=== PATIENT | female | born 1950 | race Caucasian/White ===

== ENCOUNTER → 2022-04-03 14:54 | Outpatient (CLI) | payer MEDICARE, SELFPAY ==
--- NOTE | ~2022-04-03 | MM_ITS ---
EXAMINATION: MM scrn audra implant BI w devin HISTORY: Screening mammogram TECHNIQUE: Craniocaudal and mediolateral oblique 3-D tomosynthesis images with implant displacement a nd synthetic 2-D images were generated. Craniocaudal and mediolateral oblique views of the breasts wi thout implant displacement were obtained using full field digital mammography. CAD analysis was submi tted and interpreted. COMPARISON: Comparison to multiple prior studies sequentially, with oldest reviewed study dated 03/2017. BREAST PARENCHYMAL COMPOSITION: There are scattered areas of fibroglandular density. FINDINGS: There is no evidence of suspicious mass, calcification, or architectural distortion to sugg est malignancy in either breast. There has been no suspicious interval change. IMPRESSION: 1. No mammographic evidence of malignancy. 2. Recommend routine screening mammography in one year. BI-RADS Category 1: Negative Reviewed, dictated and finalized at location A. [employer]
== END ==
PROVIDERS: PCP Family Medicine; Visit Provider Physician Assistant
DX: Z12.31 Encounter for screening mammogram for malignant neoplasm of breast (principal); Z98.82 Breast implant status
CPT/HCPCS: 77063; 77067

== ENCOUNTER 2022-10-02 00:54 | Day surgery (SDC) | payer MEDICARE, OTHER, SELFPAY ==
[2022-09-23 13:45] VITALS: BMI 28.0
--- NOTE | 2022-10-01 14:06 | PM.HPGS ---
History of Present Illness History of Present Illness Consent: Risks, benefits, and alternatives have been discussed and questions answered. Patient agrees to proceed with procedure. Chief complaint: positive cologuard Narrative: Lucie Emerson is a 72 year old female referred for colon cancer screening. She had a recent Cologuard test which was positive Review of Systems Review of Systems: All systems reviewed & are unremarkable except as noted in HPI and below PMFSH Past Medical History Medical History CAD (coronary artery disease) Hypertension with heart disease Hypothyroidism Pure hyperglyceridemia Surgical History Surgical History History of hysterectomy Family History Family History Sibling Hypertension Family history of diabetes mellitus in first degree relative Mother Family history of malignant neoplasm of brain Social History Social History Smoking status: Never smoker Second hand tobacco smoke exposure: No Alcohol intake: never Substance use: never Substance use type: does not use Living arrangements: alone Occupation/Education: retired Gender identity (if verbalized by the patient): Female Sexual Orientation (if Verbalized by the Patient): Straight or Heterosexual Spiritual care concerns: No Meds Home Medications and Allergies Home Medications Medication Instructions Recorded Confirmed Type amlodipine 2.5 mg tablet 2.5 mg PO BID 08/15/20 09/23/22 History cholecalciferol (vitamin D3) 1,250 1,250 mcg PO WEEKLY 08/15/20 09/23/22 History mcg (50,000 unit) capsule fenofibrate 160 mg tablet 160 mg PO DAILY 08/15/20 09/23/22 History isosorbide dinitrate 30 mg tablet 30 mg PO BID 08/15/20 09/23/22 History levothyroxine 50 mcg tablet 50 mcg PO DAILY 08/15/20 09/23/22 History liothyronine 5 mcg tablet 5 mcg PO DAILY 08/15/20 09/23/22 History metoprolol succinate 50 mg 50 mg PO DAILY 08/15/20 09/23/22 History tablet,extended release 24 hr meloxicam 7.5 mg tablet 7.5 mg PO BID #180 tabs 04/05/22 09/23/22 Rx aspirin 81 mg tablet,delayed 81 mg PO DAILY 09/23/22 09/23/22 History release inulin 2 gram chewable tablet 2 g PO DAILY 09/23/22 09/23/22 History (Fiber Gummies) Allergies Allergy/AdvReac Type Severity Reaction Status Date / Time penicillin G Allergy Mild Rash Verified 10/02/22 06:23 Penicillins Allergy Mild Rash Verified 10/02/22 06:23 codeine AdvReac Mild Nausea Verified 10/02/22 06:23 hydrocodone AdvReac Mild Nausea Verified 10/02/22 06:23 Exam Const: General: alert Orientation/consciousness: patient oriented x3 Resp: Auscultation: clear to auscultation bilaterally Cardio: Rhythm: regular rhythm GI: GI Palp: Yes Soft to palpation and No Tenderness to palpation present (GI) Neuro: General: patient oriented x3 Assessment and Plan Assessment and plan (1) Colon cancer screening: Code(s): Z12.11 - Encounter for screening for malignant neoplasm of colon Status: Acute Assessment and Plan: Colonoscopy with possible biopsy or polypectomy or cautery or injection of substances.
[2022-10-02 06:24] VITALS: BP 138/87; PULSE 75; RESP 18; TEMP 36.3; O2SAT 99
[2022-10-02] MEDS: LACTATED RINGERS 1,000 ML 150 ML IV CONT (06:36)
--- NOTE | 2022-10-02 07:23 | WPDANESEPPF ---
Anes - Initial Pre Proc Eval Procedure: Operation Date: 10/02/22 07:30 Proposed Procedures p Colonoscopy - Kulwant Burk MD Date/Time: 10/02/22 07:23 Surgeon: Kulwant Burk MD Pre Op Diagnosis: positive cologuard Patient Data Age: 72 Gender: F Height: 1.63 m Weight: 72.2 kg Last Vital Signs Temp 97.3 F L 10/02/22 06:24 Pulse 75 10/02/22 06:24 Resp 18 10/02/22 06:24 BP 138/87 10/02/22 06:24 Pulse Ox 99 10/02/22 06:24 O2 Del Method Room Air 10/02/22 06:24 Allergies Allergy/AdvReac Type Severity Reaction Status Date / Time penicillin G Allergy Mild Rash Verified 10/02/22 06:23 Penicillins Allergy Mild Rash Verified 10/02/22 06:23 codeine AdvReac Mild Nausea Verified 10/02/22 06:23 hydrocodone AdvReac Mild Nausea Verified 10/02/22 06:23 Home Medications Medication Instructions Recorded Confirmed Type amlodipine 2.5 mg tablet 2.5 mg PO BID 08/15/20 09/23/22 History cholecalciferol (vitamin D3) 1,250 1,250 mcg PO WEEKLY 08/15/20 09/23/22 History mcg (50,000 unit) capsule fenofibrate 160 mg tablet 160 mg PO DAILY 08/15/20 09/23/22 History isosorbide dinitrate 30 mg tablet 30 mg PO BID 08/15/20 09/23/22 History levothyroxine 50 mcg tablet 50 mcg PO DAILY 08/15/20 09/23/22 History liothyronine 5 mcg tablet 5 mcg PO DAILY 08/15/20 09/23/22 History metoprolol succinate 50 mg 50 mg PO DAILY 08/15/20 09/23/22 History tablet,extended release 24 hr meloxicam 7.5 mg tablet 7.5 mg PO BID #180 tabs 04/05/22 09/23/22 Rx aspirin 81 mg tablet,delayed 81 mg PO DAILY 09/23/22 09/23/22 History release inulin 2 gram chewable tablet 2 g PO DAILY 09/23/22 09/23/22 History (Fiber Gummies) Patient hx anesthesia problems: none Family hx anesthesia problems: none Results Review: All pre-operative results and documents have been reviewed as part of the pre-operative evaluation. [facility] Past Medical History Medical History CAD (coronary artery disease) Hypertension with heart disease Hypothyroidism Pure hyperglyceridemia Surgical History Surgical History History of hysterectomy Family History Family History Sibling Hypertension Family history of diabetes mellitus in first degree relative Mother Family history of malignant neoplasm of brain Social History Social History Smoking status: Never smoker Second hand tobacco smoke exposure: No Alcohol intake: never Substance use: never Substance use type: does not use Living arrangements: alone Occupation/Education: retired Gender identity (if verbalized by the patient): Female Sexual Orientation (if Verbalized by the Patient): Straight or Heterosexual Spiritual care concerns: No Anes - Eval Final PreProcedure Day of Procedure 10/02/22 07:23 Patient weight: normal Heart: regular rate and rhythm Lungs: clear to auscultation Airway: Mallampati scale class II Neurological: alert and oriented Last oral intake: >/= 8 hours ASA classification: III Emergent: no Anesthetic plan: proceed Anesthesia type and monitoring: general GIVS and standard monitoring Results Review: All pre-operative results and documents have been reviewed as part of the pre-operative evaluation. Informed Consent: The patient's anesthetic plan and its attendant risks and benefits were discussed with the patient/family/POA. Questions were solicited and answers provided to the satisfaction of the patient/family/POA.
[2022-10-02 07:54] VITALS: BP 124/68; PULSE 85; RESP 21; O2SAT 98
[2022-10-02 08:04] VITALS: BP 131/81; PULSE 74; RESP 20; O2SAT 100
[2022-10-02 08:14] VITALS: BP 127/73; PULSE 73; RESP 21; O2SAT 98
== END 2022-10-02 08:17 | disposition home or self-care (01) ==
PROVIDERS: PCP Family Medicine; Visit Provider Internal Medicine Gastroenterology
PROC: 0DJD8ZZ Inspection of Lower Intestinal Tract, Via Natural or Artificial Opening Endoscopic (ICD-10-PCS; CPT 45378; principal; 2022-10-02 07:30)
DX: Z12.11 Encounter for screening for malignant neoplasm of colon (principal); K57.30 Diverticulosis of large intestine without perforation or abscess without bleeding; R19.5 Other fecal abnormalities; I25.10 Atherosclerotic heart disease of native coronary artery without angina pectoris; I11.9 Hypertensive heart disease without heart failure; E03.9 Hypothyroidism, unspecified; E78.1 Pure hyperglyceridemia; Z79.82 Long term (current) use of aspirin
CPT/HCPCS: G0121; J2704; J7120

== ENCOUNTER 2023-03-01 07:25 | Outpatient (CLI) | payer MEDICARE, OTHER, SELFPAY ==
[2023-03-01 08:18] LABS: Anion Gap 5 mmol/L (8-16); Blood Urea Nitrogen 16 mg/dL (7-18); Calcium 9.3 mg/dL (8.5-10.1); Carbon Dioxide 31 mmol/L (21-32); Chloride 104 mmol/L (98-108); Cholesterol 172 mg/dL (0-200); Estimated Glomerular Filt Rate > 60; Glucose 113 mg/dL (70-99); HDL Direct 33 mg/dL (40-60); LDL Cholesterol Calculated 112 mg/dL (<130); Osmolality Calculated 292 mOsm/kg (285-295); Potassium 4.5 mmol/L (3.5-5.1); Sodium 140 mmol/L (136-145); Triglycerides 135 mg/dL (0-150)
[2023-03-01 08:21] LABS: Hemoglobin A1C 6.1 % (<5.7)
== END 2023-03-01 07:26 | disposition home or self-care (01) ==
PROVIDERS: PCP Emergency Medicine; Visit Provider Emergency Medicine
DX: R73.01 Impaired fasting glucose (principal); I25.10 Atherosclerotic heart disease of native coronary artery without angina pectoris
CPT/HCPCS: 36415; 80048; 80061; 83036

== ENCOUNTER 2023-07-12 07:11 | Outpatient (CLI) | payer MEDICARE, OTHER, SELFPAY ==
[2023-07-12 08:14] LABS: Alanine Aminotransferase 34 U/L (14-59); Albumin Level 3.8 g/dL (3.4-5.0); Alkaline Phosphatase 68 U/L (46-116); Anion Gap 8 mmol/L (4-12); Aspartate Amino Transferase 26 U/L (15-37); Bilirubin,Total 0.7 mg/dL (0.00-1.00); Blood Urea Nitrogen 14 mg/dL (7-18); Calcium 9.3 mg/dL (8.5-10.1); Carbon Dioxide 30 mmol/L (21-32); Chloride 105 mmol/L (98-108); Cholesterol 148 mg/dL (0-200); Creatine Kinase 98 U/L (26-192); Estimated Glomerular Filt Rate > 60; Glucose 115 mg/dL (70-99); HDL Direct 46 mg/dL (40-60); LDL Cholesterol Calculated 73 mg/dL (<130); Osmolality Calculated 297 mOsm/kg (285-295); Potassium 4.6 mmol/L (3.5-5.1); Sodium 143 mmol/L (136-145); Total Protein 6.7 g/dL (6.4-8.2); Triglycerides 146 mg/dL (0-150)
== END 2023-07-12 07:12 | disposition home or self-care (01) ==
LOC: CHSLAB 07:16
PROVIDERS: PCP Emergency Medicine; Visit Provider Hospitalist
DX: E78.2 Mixed hyperlipidemia (principal)
CPT/HCPCS: 36415; 80053; 80061; 82550

== ENCOUNTER 2023-10-31 08:12 | Outpatient (RCR) | payer MEDICARE, OTHER, SELFPAY ==
--- NOTE | 2023-10-31 08:43 | OTOPEVAL1 ---
Assessment and note entered by Anai Cook OT Evaluation Information Assessment Status Evaluation Diagnosis Carpal tunnel syndrome, right upper limb ICD-10 Condition Codes (OT) M25.531 Other ICD-10 Condition Codes ( Primary osteoarthritis, right hand OT) Onset 3 years Reported Pain Level Pain Score 3: Self Report Assessment OT Clinical Summary The patient is a 73 year old female who was referred to outpatient OT due to carpal tunnel syndrome. 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 The patient has difficulty picking up her coffee mug, opening jars, affects her work tasks, and affects sleep. The patient scored 31.8% on QuickDASH questionnaire at the time of evaluation demonstrating moderate to mild dysfunction of UE. She requires skilled OT to address these symptoms and improve function for quality of life. Plan of Care Interventions Therapeutic Exercise,Manual Therapy,Neuro Re- education,Therapeutic Activities,Hot Pack/Cold Pack,Electrical Stimulation,Sensory Integrative Techn,Self-Care/Home Management,Prosthetic Training,Ultrasound OT Services Indicated Yes Treatment Frequency and 2x/week for 10 visits. Duration These treatments will address the objective and functional deficits as defined above. The patient will be advanced safely and appropriately in order for the patient to progress towards his/her prior level of function. Additional exercises will be introduced and as well as a comprehensive home exercise program upon discharge, if needed, ?to ensure carryover of functional gains achieved in the clinic. This treatment plan has been reviewed and agreement upon by the patient.
--- NOTE | 2023-11-05 08:53 | OPREHPOC ---
Outpatient Therapy Plan of Care This is a Multidisciplinary Plan of Care that may contain components documented by all disciplines (PT, OT, and ST.) PT Problem 1 PT Problem #1 Knowledge Deficit PT Goal 1 Goal / Goal Update The patient will be independent in a home exercise program. Target Visit 4 PT Problem 2 PT Problem #2 Pain PT Goal 1 Goal / Goal Update The patient will report no greater than 2/10 lumbar and R LE pain with grocery shopping and housework. Target Visit 10 PT Problem 3 PT Problem #3 Impaired Flexibility PT Goal 1 Goal / Goal Update The patient will demonstrate right hamstring flexibility of -10 or less degrees to decrease stress on the lumbar spine. Target Visit 10 PT Problem 4 PT Problem #4 Impaired Strength PT Goal 1 Goal / Goal Update The patient will demonstrate upper and lower abdominal, lumbar extensors, and hip extension strength of 4-/5 or greater to support the spine for walking necessary for daily activities. Target Visit 10 PT Problem 5 PT Problem #5 Impaired Functional Mobil PT Goal 1 Goal / Goal Update 1. The patient will demonstrate 25% or less self perceived disability per the Back Index. 2. The patient will be able to ambulate 1,200 feet during the 6 minute walk test with 2/10 or less lumbar and LE pain to improve community ambulation . Target Visit 10 OT Problem 1 OT Problem #1 Knowledge Deficit OT Goal 1 Goal / Goal Update The patient will demonstrate 100% knowledge and return demonstration of UE HEP needed to decrease pain and improve strength. Target Visit 10 OT Problem 2 OT Problem #2 Pain OT Goal 1 Goal / Goal Update The patient will demonstrate <3/10 pain after working wrist from work tasks and report mild to no tingling in UE in order to decrease discomfort during daily tasks. 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
--- NOTE | 2023-11-05 08:53 | PTOPEVAL1 ---
Assessment and note entered by Tosha Tinoco, PT Evaluation Information Assessment Status Evaluation ICD-10 Condition Codes (PT) M54.16 Other ICD-10 Condition Codes ( M54.41 PT) Onset 10/22/23 Subjective Information Lucie Emerson reports a gradual onset of right buttock pain with referral to the front of her thigh for about a year now. She notes the pain has worsened over the last 3-4 months and the only thing that has changed is that she has been mowing her lawn. She has intermittent pain that seems to worsen with standing and walking. She has had her right knee give out a few times as well making her afraid of falling. She notes she can only stand and walk for about 10 minutes. Reported Pain Level Pain Score 3: Self Report Assessment PT Clinical Summary Lucie Emerson presents with chronic right lower back pain with referral to the anterior thigh with walking. She is noting difficult with walking and standing more than 10 minutes which limits her ability to perform house chores, grocery shop, and walk for exercise. She objectively demonstrates tenderness at the L3 and L4 spinous processes and right lumbar paraspinals, decreased core and right hip strength, decreased bilateral hamstring flexibility, and positive special tests consistent with lumbar nerve root irritation. She will benefit from skilled PT to address these limitations. Plan of Care Interventions Electrical Stimulation,Hot Pack/Cold Pack,Manual Therapy,Mechanical Traction,Neuro Re-education, Patient/Caregiver Educati,Therapeutic Activities, Therapeutic Exercise PT Services Indicated Yes Treatment Frequency and 2 times a week for 10 visits Duration These treatments will address the objective and functional deficits as defined above. The patient will be advanced safely and appropriately in order for the patient to progress towards his/her prior level of function. Additional exercises will be introduced and as well as a comprehensive home exercise program upon discharge, if needed, ?to ensure carryover of functional gains achieved in the clinic. This treatment plan has been reviewed and agreement upon by the patient.
--- NOTE | 2023-11-24 13:46 | OTOPDC ---
Assessment and note entered by Anai Cook OT Evaluation Information Assessment Status Discharge Diagnosis Carpal tunnel syndrome, right upper limb Reported Pain Level Pain Score 0,2: Self Report Assessment OT Clinical Summary The patient demonstrates significant progress in pan helper strength and HEP knowledge/demonstration since SOC. The patient did not meet pinch strength and pain goals at this time, the patient reports she has improved enough that she is comfortable to be discharged. At this time, the patient is very busy and needs to stop therapy. Therapist educated patient on HEP to continue and to change work environment and take breaks to decrease stress on hands. The patient demonstrates good understanding and is discharged this date with HEP. Plan of Care OT Services Indicated No
--- NOTE | 2023-11-24 13:47 | OPREHPOC ---
Outpatient Therapy Plan of Care This is a Multidisciplinary Plan of Care that may contain components documented by all disciplines (PT, OT, and ST.) PT Problem 1 PT Problem #1 Knowledge Deficit PT Goal 1 Goal / Goal Update The patient will be independent in a home exercise program. Target Visit 4 PT Problem 2 PT Problem #2 Pain PT Goal 1 Goal / Goal Update The patient will report no greater than 2/10 lumbar and R LE pain with grocery shopping and housework. Target Visit 10 PT Problem 3 PT Problem #3 Impaired Flexibility PT Goal 1 Goal / Goal Update The patient will demonstrate right hamstring flexibility of -10 or less degrees to decrease stress on the lumbar spine. Target Visit 10 PT Problem 4 PT Problem #4 Impaired Strength PT Goal 1 Goal / Goal Update The patient will demonstrate upper and lower abdominal, lumbar extensors, and hip extension strength of 4-/5 or greater to support the spine for walking necessary for daily activities. Target Visit 10 PT Problem 5 PT Problem #5 Impaired Functional Mobil PT Goal 1 Goal / Goal Update 1. The patient will demonstrate 25% or less self perceived disability per the Back Index. 2. The patient will be able to ambulate 1,200 feet during the 6 minute walk test with 2/10 or less lumbar and LE pain to improve community ambulation . Target Visit 10 OT Problem 1 OT Problem #1 Knowledge Deficit OT Goal 1 Goal / Goal Update The patient will demonstrate 100% knowledge and return demonstration of UE HEP needed to decrease pain and improve strength. Target Visit 10 Progress Met OT Problem 2 OT Problem #2 Pain OT Goal 1 Goal / Goal Update The patient will demonstrate <3/10 pain after working wrist from work tasks and report mild to no tingling in UE in order to decrease discomfort during daily tasks. Target Visit 10 Progress Not Met OT Goal 2 Goal / Goal Update 2/10 at lowest to 8/10 while working; depending on what she has to do
--- NOTE | 2023-12-01 12:46 | PTOPDC ---
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 reports 0/10 low back pain today. She reports that her pain continues to be worse in the right leg with sitting. She is currently doing her HEP. She has not seen much progress and requests discharge following treatment. Reported Pain Level Pain Score 0: Self Report Assessment PT Clinical Summary Pt. continues to provide varying reports of pain. She currently has a comprehensive HEP to address trunk mobility and core stability. She reviewed current HEP at last treatment and assured she will continue with her HEP. She will be discharged from our care at this time. Plan of Care PT Services Indicated No
== END 2023-11-24 13:45 | disposition home or self-care (01) ==
LOC: CHSOT 08:12
PROVIDERS: Visit Provider Emergency Medicine
DX: M19.041 Primary osteoarthritis, right hand (principal); G56.01 Carpal tunnel syndrome, right upper limb
CPT/HCPCS: 97014; 97035; 97110; 97140; 97161; 97165; 97530; G0283

== ENCOUNTER 2023-11-18 07:22 | Outpatient (CLI) | payer MEDICARE, OTHER, SELFPAY ==
--- NOTE | ~2023-11-18 | MM_ITS ---
EXAMINATION: MM scrn audra implant BI w devin HISTORY: Screening mammogram TECHNIQUE: Craniocaudal and mediolateral oblique 3-D tomosynthesis images with implant displacement a nd synthetic 2-D images were generated. Craniocaudal and mediolateral oblique views of the breasts wi thout implant displacement were obtained using full field digital mammography. CAD analysis was submi tted and interpreted. COMPARISON: 04/03/2022, 08/10/2018 BREAST PARENCHYMAL COMPOSITION: There are scattered areas of fibroglandular density. FINDINGS: Stable small left breast mass at the outer aspect. There is no evidence of suspicious mass, calcification, or architectural distortion to suggest malignancy in either breast. There has been no suspicious interval change. IMPRESSION: No mammographic evidence of malignancy. Recommend routine screening mammography in one year. BI-RADS Category 2: Benign finding(s). Reviewed, dictated and finalized at [facility].
== END 2023-11-18 07:23 | disposition home or self-care (01) ==
LOC: CHSIMG 07:24
PROVIDERS: PCP Emergency Medicine; Visit Provider Emergency Medicine
DX: Z12.31 Encounter for screening mammogram for malignant neoplasm of breast (principal)
CPT/HCPCS: 77063; 77067

== ENCOUNTER 2024-03-27 07:08 | Outpatient (CLI) | payer MEDICARE, OTHER, SELFPAY ==
--- OUTSIDE RECORDS SUMMARY | 2024-03-27 07:12 | XMS_ITS | Referral Summary ---
Author Organization [facility] [address] [place] [address] Professional [place] Address [address] [place] [address] Care Team Providers Care Service Manager Name Role Phone Mitch Pemberton MD Primary Care Provider [phone] Allergies Active Allergy Reactions Criticality Noted Date Comments Codeine Dizziness,Headache,N ausea And Vomiting,Unknown,Photosensitivity Low 03/08/2022 Hydrocodone Rash Medium 03/08/2022 Penicillins Itching,Rash Medium 03/08/2022 Medications isosorbide mononitrate ER (IMDUR) 30 mg 24 hr tablet take 2 tablet by oral route every day in the morning 0 0 07/19/19 16 Active Additional Information Patient taking differently:30 mgoral 2 times daily, Indications: prevention of anginal pain in coronary artery disease, Informant: Self, Reported on 11/25/2023 amLODIPine (NORVASC) 2.5 mg tablet take 2 tablet by oral route every day 0 0 07/19/19 16 Active Additional Information Patient taking differently:2.5 mgoral 2 times daily, Indications: hypertension, Informant: Self, Reported on 07/26/2022 meloxicam (MOBIC) 7.5 mg tablet take 1 tablet by oral route BID 0 0 07/19/19 16 Active Additional Information Patient taking differently:7.5 mgoral 2 times daily, Indications: Osteoarthritis, Informant: Self, Reported on 07/26/2022 metoprolol XL (TOPROL-XL) 50 mg 24 hr tablet take 1 tablet by oral route every day 0 0 07/19/19 16 Active Additional Information Patient taking differently:50 mgoral Every morning, Indications: hypertension, Informant: Self, Reported on 07/26/2022 polyethylene glycol (MIRALAX) 17 gram/dose powder Take 17 g by mouth daily 510 g 08/02/19 Active Additional Information Patient taking differently:17 g oral Daily,Indications: constipation, Informant: Self, Reported on 11/25/2023 atorvastatin (LIPITOR) 20 mg tabletIndications: hyperlipidemia Take 1 tablet (20 mg total) by mouth nightly 07/14/19 Active aspirin 81 mg enteric coated tabletIndications: heart health Take 1 tablet (81 mg total) by mouth nightly 08/24/19 Active nitroglycerin (NITROSTAT) 0.4 mg SL tablet Take 1 tablet (0.4 mg total) by mouth every 5 (five) minutes as needed for chest pain 08/24/19 Active levothyroxine (SYNTHROID) 50 mcg tabletIndications: Acquired hypothyroidism Take 1 tablet (50 mcg total) by mouth daily before breakfast 90 tablet 3 08/25/19 Active Additional Information Patient taking differently:50 mcg oralDaily (early AM), Indications: hypothyroidism, Informant: Self, Reported on 11/25/2023 liothyronine (CYTOMEL) 5 mcg tabletIndications: Acquired hypothyroidism Take 1 tablet (5 mcg total) by mouth daily 90 tablet 3 08/25/19 Active Additional Information Patient taking differently:5 mcg oralEvery morning, Indications: hypothyroidism, Informant: Self, Reported on 11/25/2023 ergocalciferol (VITAMIN D) 50,000 unit capsuleIndications :Vitamin D Deficiency Take 1 capsule (50,000 Units total) by mouth once a week sundays 12 capsule 3 12/24/19 Active estradioL (ESTRACE) 0.01 % (0.1 mg/gram) vaginal creamIndications:V aginal atrophy APPLY 1/4 APPLICATORFUL( 1 GRAM) IN THE VAGINA 2 TO 3 DAYS A WEEK SUCH FRIDAY, FRIDAY, FRIDAY 42.5 g 2 01/28/20 Active Active Problems Problem Noted Date Diagnosed Date Postoperative state 08/30/2022 Mixed stress and urge urinary incontinence 06/14 Vaginal atrophy 06/14/2022 Other constipation 06/14/2022 Pelvic floor dysfunction in female 06/14/2022 Vitamin D deficiency 07/17/2017 Assessment & Plan (08/23/2021 10:09 AM CDT): Check 25 OH vit D Adjust dose of Ergocalciferol accordingly Assessment & Plan (07/13/2020 10:15 AM CDT): Check 25 OH vit D Adjust dose of Ergocalciferol accordingly Assessment & Plan (07/15/2019 10:15 AM CDT): Check 25 OH vit D Adjust dose of Ergocalciferol accordingly Assessment & Plan (07/09/2018 2:20 PM CDT): Check 25 OH vit D Adjust dose of Ergocalciferol accordingly Assessment & Plan (07/17/2017 9:47 AM CDT): Check 25 OH vit D Adjust dose of Ergocalciferol accordingly Postmenopausal bone loss 07/17/2017 Thrombocytosis 07/05/2015 07/26/2022 Hypothyroidism 02/10/2013 Overview (06/06/2016): HYPOTHYROIDISM NOS Assessment & Plan (08/19/2023 9:47 AM CDT): Chronic, stable Update TFTs Continue Levothyroxine and Liothyronine. Send rx once results are back Assessment & Plan (08/22/2022 1:37 PM CDT): Chronic, well controlled Update TSH Continue Levothyroxine and cytomel Rx sent. 1 year follow up Assessment & Plan (08/23/2021 10:08 AM CDT): Thyroid function tests, including TSH and free T4 were requested Will adjust dose of Levothyroxine accordingly . If there is a need to make changes, will recheck levels in 2-3 months. Instructions to patient on taking medication properly : in the morning, on an empty stomach , 1 h part from food and/or other meds. Assessment & Plan (07/13/2020 10:15 AM CDT): Thyroid function tests, including TSH and free T4 were requested Will adjust dose of Levothyroxine accordingly . If there is a need to make changes, will recheck levels in 2-3 months. Instructions to patient on taking medication properly : in the morning, on an empty stomach , 1 h part from food and/or other meds. Assessment & Plan (07/15/2019 10:15 AM CDT): Will check TSH and free T4 Will adjust dose of Levothyroxine and / or T3 accordingly . Assessment & Plan (07/09/2018 2:20 PM CDT): Check TFT's Adjust dose of Synthroid / Cytomel accordingly Assessment & Plan (07/17/2017 9:45 AM CDT): Will check TSH and free T4 Will adjust dose of Levothyroxine accordingly . If there is a need to make changes, will recheck levels in 2-3 months. Instructions to patient on taking medication properly : in the morning, on an empty stomach , 1 h part from food and/or other meds. If any doses are missed, can take 2-3 tab together ,to make up for the missed dose; make sure at the end to the week, 7 tabs have been taken. Resolved Problems Problem Noted Date Diagnosed Date Resolved Date Vaginal vault prolapse after hysterectomy 07/31/2022 08/18/2023 Prolapse of vaginal vault after hysterectomy 3 08/18/2023 Cystocele, midline 06/14/2022 4 Overview (06/14/2022): Added automatically from request for surgery [id number] Immunizations Name Administration Dates Next Due Moderna SARS-CoV-2 Monovalen t Vaccination (12+ YRS) 02/02/2021,05/15/2020,04/17/2020 Social History Tobacco Use Types Packs/Day Years Used Date Smoking Tobacco: Never Smokeless Tobacco: Never Tobacco Cessation:Counseling Given: Not Answered Alcohol Use Standard Drinks/Week Comments No 0 (1 standard drink = 0.6 oz pur e alcohol) AUDIT-C Answer Date Recorded Q1: How often do you have a drink containing alcohol? Never 11/25/2023 Q2: How many drinks containi ng alcohol do you have on a typical day when you are drinking? Patient does not drink Q3: How often do you have si x or more drinks on one occasion? Never 11/25/2023 PHQ-2 Answer Date Recorded PHQ-2 Total Score (If total score is 3 or more points, staff should administer the PHQ-9) 0 08/19/2023 Personal Safety Answer Date Recorded Have you ever been in or are you currently in a harmful physical or emotional relationship or is someone making you feel afraid or unsafe? 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 Gender Identity Female 07/08/2019 7:35 AM CDT Sexual Orientation Straight 09/27/2021 6: 07 PM CDT Last Filed Vital Signs Vital Sign Reading Time Taken Comments Blood Pressure 114/72 08/19/2023 9:29 AM CDT Pulse 76 08/19/2023 9:29 AM CDT Temperature 36.3 ??C (97.3 ??F) 08/01/2022 7:25 AM CD T Respiratory Rate 18 08/19/2023 9:29 AM CDT Oxygen Saturation 97% 08/01/2022 7:25 AM CDT Inhaled Oxygen Concentration - - Weight 74.8 kg (165 lb) 11/25/2023 9:38 AM CDT Height 162.6 cm (5' 4 ) 11/25/2023 9:38 AM CDT Body Mass Index 28.32 11/25/2023 9:38 AM CDT Plan of Treatment Not on file Medical Devices Implanted Type Area School Age Program Associate Device Identifier Shelf Expiration Date Model / Serial / Lot Dasher Upsylon 35.4cm Elongation Profile Lightweight Large Pore Low [id number] - [id number] Implanted:Qty: 1 on 07/31/2022 by Glenn Smith MD at [facility] [employer] Tricia 05/31/2025 [id number] / / Procedures Procedure Name Priority Date/Time Associated Diagnosis Comments DEXA AXIAL SKELETON BONE DENSITY 1 OR MORE SITES Schedule Routine, Read Routine (OP Routine) 07/23/2017 SCREENING MAMMOGRAM Routine 09/27/2015 7:31 AM CDT from Last 3 Months or Most Recently Relevant to Health Maintenance Results * Dexa Axial Skeleton Bone Density 1 or 2 Site (07/23/2017) Anatomical Region Laterality Modality Body N/A Radiographic Kelsey ging us Historical Provider MD JULES DXA PROCEDURES Final Result * Screening Mammogram (09/27/2015 7:31 AM CDT) Anatomical Region Laterality Modality Breast N/A Mammography 09/27/2015 7:31 AM CDT Narrative 09/27/2015 11:43 AM CDT Acc#: ??[id number] GINA [id number] - Screening Mamm W Implants BI DATE OF EXAM: ??Sep 27 2015 ??7:31AM DIAGNOSIS: ??ENCNTR SCREEN MAMMOGRAM FOR MALIGNANT NE CLINICAL HISTORY: ??SCREENING RESULT: ? SCREENING MAMMOGRAM WITH IMPLANTS BILATERAL WITH CAD: In addition to standard MLO and CC views, implant displacement views bilaterally were obtained in the MLO and CC projections. Comparison is made to 10/11/13 screening mammographic exam with implant displacement views. Implant contours are smooth. Left breast nodules, which may represent intramammary lymph nodes, are stable. There are no suspicious new nodules, calcification clusters, or distortion. Benign-appearing left axillary lymph nodes are present. IMPRESSION: ? CATEGORY 2, BENIGN IMPRESSION OF OVERALL ASSESSMENT CATEGORY 2 -- BENIGN TECHNOLOGIST: ?? EMETERIO BEGUM, TECHNOLOGIST MEDICAL IMAGING DRUG CLERK: ??KG2 TRANSCRIBE DATE/TIME: ??Sep 27 2015 11:19A RADIOLOGIST: ??AVA NEWMAN M.D. ??READ ON: ??Sep 27 2015 10:26A ORDERING DR: SUNDAY MARES M.D. THIS DOCUMENT HAS BEEN ELECTRONICALLY SIGNED BY: ??AVA NEWMAN M.D. ??ON: ??Sep 27 2015 11:43A Attending: ??VISHNU, ??SUNDAY Requesting: ??VISHNU, ??SUNDAY Requesting Fax: ??[phone] Attending Fax: ??[phone] Attending ID: ??[id number] Requesting ID: ??[id number] Report To 1 ID: ?? Report To 1 Name: ??, ?? Report To 1 FAX: ??-- Report To 2 ID: ?? Report To 2 Name: ??, ?? Report To 2 FAX: ??-- NextGen Order #: ?? Procedure Note Provider, MD Josie - 07/07/2016 Acc#: [id number] GINA [id number] - Screening Mamm W Implants BI DATE OF EXAM: Sep 27 2015 7:31AM DIAGNOSIS: ENCNTR SCREEN MAMMOGRAM FOR MALIGNANT NE CLINICAL HISTORY: SCREENING RESULT: SCREENING MAMMOGRAM WITH IMPLANTS BILATERAL WITH CAD: In addition to standard MLO and CC views, implant displacement views bilaterally were obtained in the MLO and CC projections. Comparison is made to 10/11/13 screening mammographic exam with implant displacement views. Implant contours are smooth. Left breast nodules, which may represent intramammary lymph nodes, are stable. There are no suspicious new nodules, calcification clusters, or distortion. Benign-appearing left axillary lymph nodes are present. IMPRESSION: CATEGORY 2, BENIGN IMPRESSION OF OVERALL ASSESSMENT CATEGORY 2 -- BENIGN TECHNOLOGIST: EMETERIO BEGUM, TECHNOLOGIST MEDICAL IMAGING DRUG CLERK: KG2 TRANSCRIBE DATE/TIME: Sep 27 2015 11:19A RADIOLOGIST: AVA NEWMAN M.D. READ ON: Sep 27 2015 10:26A ORDERING DR: SUNDAY MARES M.D. THIS DOCUMENT HAS BEEN ELECTRONICALLY SIGNED BY: AVA NEWMAN M.D. ON: Sep 27 2015 11:43A Attending: SUNDAY MARES Requesting: SUNDAY MARES Requesting Attending Attending ID: [id number] Requesting ID: [id number] Report To 1 ID: Report To 1 Name: , Report To 1 FAX: -- Report To 2 ID: Report To 2 Name: , Report To 2 FAX: -- NextGen Order #: Historical Provider MD JULES MAMMO PROCEDURES Cathleen l Result from Last 3 Months or Most Recently Relevant to Health [place] [address] [place] [address] MEDICARE MEDICARE MEDICARE [facility] Address: [address] [address] [place] [address] [facility] [address] Advance Directives For more information, please contact: [phone] * Full Code (Latest Code Status on File) Date Activated Date Inactivated Comments 07/31/2022 3:49 PM 08/01/2022 4:41 PM Care Teams Service Manager Relationship Specialty Start Date End Date Mitch Pemberton MD [facility] [address] [place] [id number] PCP - General Family Medicine 11/26/23
--- OUTSIDE RECORDS SUMMARY | 2024-03-27 07:12 | XMS_ITS | Encounter Summary ---
Author Organization [facility] Address [address] [place] [address]. [place] [address] [place] [address] Care Team Providers Care Field Court Researcher Name Role Phone Sunday Venegas MD Primary Care Provider [phone] Mitch Pemberton MD Primary Care Provider [phone] Encounter Details Date Type Department Care Team (Late st Contact Info) Description 03/13/2022 [facility] [address] [address] Sharon Wilson MA Social History Tobacco Use Types Packs/Day Years Used Date Smoking Tobacco: Never Passive Smoke Exposure: Never Smokeless Tobacco: Never Alcohol Use Standard Drinks/Week Comments Not Currently 0 (1 standard drink = 0.6 oz pur e alcohol) Comments No Sex and Gender Information Value Date Recorded Sex Assigned at Female 04/15/2023 3:16 PM 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 No / Unsure 03/08/2022 9:30 AM SENIOR PAYROLL MANAGER documented as of this encounter Plan of Treatment Upcoming Encounters Date Type Department Care Team (Late st Contact Info) Description 04/21/2024 10:45 AM SENIOR PAYROLL MANAGER Office Visit [facility], [address] [id number] Ton Sandoval MD [facility]. [address] [place], [place] [id number] documented as of this encounter Procedures Procedure Name Priority Date/Time Associated Diagnosis Comments COMPREHENSIVE METABOLIC PANEL Routine 07/12/2023 LIPID PANEL Routine 07/12/2023 CK (CPK) Routine 07/12/2023 COMPREHENSIVE METABOLIC PANEL Routine 03/01/2023 LIPID PANEL Routine 03/01/2023 CBC (OUTSIDE LAB) Routine 01/28/2022 COMPREHENSIVE METABOLIC PANEL Routine 01/28/2022 LIPID PANEL Routine 01/28/2022 HEMOGLOBIN, GLYCOSYLATED Routine 01/28/2022 VITAMIN D, 25 OH Routine 01/28/2022 CBC (OUTSIDE LAB) Routine 11/26/2021 COMPREHENSIVE METABOLIC PANEL Routine 11/26/2021 LIPID PANEL Routine 11/26/2021 THYROID STIM HORMONE TSH Routine 11/26/2021 COMPREHENSIVE METABOLIC PANEL Routine 05/15/2021 LIPID PANEL Routine 05/15/2021 documented in this encounter Results * CK (CPK) (07/12/2023) CPK 98 07/12/2023 us Default History Genericprovider LABORATORY Final Result * COMPREHENSIVE METABOLIC PANEL (07/12/2023) SODIUM S/P/B 143 POTASSIUM S/P/B 4.6 CO2 30 CHLORIDE S/P/B 105 GLUCOSE 115 mg/dL CALCIUM S/P/B 9.3 BUN 14 CREATININE S/P/B 0.67 0.5 - 1.0 EGFR NON-AFR. AMER. >59 <=90 ALKALINE PHOSPHATASE S/P/B 68 ALT 34 AST 26 BILIRUBIN TOTAL S/P/B 9.3 ALBUMIN S/P/B 3.8 3.5 - 5.0 TOTAL PROTEIN S/P/B 6.7 07/12/2023 Default History Genericprovider LABORATORY Edited Result - Final * LIPID PANEL (07/12/2023) CHOLESTEROL 148 HDL 46 TRIGLYCERIDES 146 LDL (CALCULATED) 73 07/12/2023 Default History Genericprovider LABORATORY Edited Result - Final * COMPREHENSIVE METABOLIC PANEL (03/01/2023) SODIUM S/P/B 140 GLUCOSE 113 mg/dL BUN 16 CREATININE S/P/B 0.87 0.5 - 1.0 CALCIUM S/P/B 9.3 POTASSIUM S/P/B 4.5 CHLORIDE S/P/B 104 GFR ESTIMATE >60 Default History Genericprovider LABORATORY Final Result * LIPID PANEL (03/01/2023) CHOLESTEROL 172 TRIGLYCERIDES 135 HDL 33 LDL (CALCULATED) 112 Default History Genericprovider LABORATORY Final Result * VITAMIN D, 25 OH (01/28/2022) VITAMIN D 25 HYDROXY S/P/B 83.1 01/28/2022 Default History Genericprovider LABORATORY Final Result * HEMOGLOBIN, GLYCOSYLATED (01/28/2022) Pathologist [facility] HGB A1C 6.0 % 01/28/2022 Default History Genericprovider LABORATORY Final Result * LIPID PANEL (01/28/2022) [facility] CHOLESTEROL 166 HDL 46 TRIGLYCERIDES 89 LDL (CALCULATED) 103 01/28/2022 Default History Genericprovider LABORATORY Final Result * COMPREHENSIVE METABOLIC PANEL (01/28/2022) [facility] SODIUM S/P/B 141 POTASSIUM S/P/B 4.8 CO2 23 CHLORIDE S/P/B 106 GLUCOSE 99 mg/dL CALCIUM S/P/B 9.8 BUN 15 CREATININE S/P/B 0.80 0.5 - 1.0 EGFR NON-AFR. AMER. 79 <=90 ALKALINE PHOSPHATASE S/P/B 40 ALT 20 AST 26 BILIRUBIN TOTAL S/P/B 0.3 ALBUMIN S/P/B 4.5 3.5 - 5.0 TOTAL PROTEIN S/P/B 7.0 GLOBULIN 2.5 01/28/2022 Result [facility] Default History Genericprovider LABORATORY Final Result * CBC (OUTSIDE LAB) (01/28/2022) [facility] WBC 4.7 HGB 13.9 HCT 41.8 PLT 465 01/28/2022 Default History Genericprovider LAB-OUTSIDE/ABST RACTED Final Result * THYROID STIM HORMONE, TSH (11/26/2021) [facility] TSH 3.14 11/26/2021 Default History Genericprovider LABORATORY Final Result * CBC (OUTSIDE LAB) (11/26/2021) WBC 5.2 HGB 13.8 HCT 41.6 PLT 434 11/26/2021 [facility] History Genericprovider LAB-OUTSIDE/ABST RACTED Final Result * COMPREHENSIVE METABOLIC PANEL (11/26/2021) SODIUM S/P/B 140 POTASSIUM S/P/B 4.5 CO2 29 CHLORIDE S/P/B 104 GLUCOSE 98 mg/dL CALCIUM S/P/B 9.8 BUN 22 CREATININE S/P/B 0.74 0.5 - 1.0 EGFR NON-AFR. AMER. 87 <=90 ALKALINE PHOSPHATASE S/P/B 35 ALT 14 AST 18 BILIRUBIN TOTAL S/P/B 0.4 ALBUMIN S/P/B 4.5 3.5 - 5.0 TOTAL PROTEIN S/P/B 6.9 GLOBULIN 2.4 11/26/2021 Default History Genericprovider LABORATORY Final Result * LIPID PANEL (11/26/2021) CHOLESTEROL 156 HDL 48 TRIGLYCERIDES 93 NON HDL CHOLESTEROL 108 LDL (CALCULATED) 89 11/26/2021 Default History Genericprovider LABORATORY Final Result * LIPID PANEL (05/15/2021) CHOLESTEROL 143 HDL 46 TRIGLYCERIDES 103 NON HDL CHOLESTEROL 97 LDL (CALCULATED) 78 05/15/2021 Default History Genericprovider LABORATORY Final Result * (ABNORMAL) COMPREHENSIVE METABOLIC PANEL (05/15/2021) SODIUM S/P/B 141 POTASSIUM S/P/B 4.5 CO2 28 CHLORIDE S/P/B 104 GLUCOSE 101 mg/dL CALCIUM S/P/B 9.6 BUN 17 CREATININE S/P/B 0.74 0.5 - 1.0 EGFR AFR. AMER. 95(A) <=90 EGFR NON-AFR. AMER. 82 <=90 ALKALINE PHOSPHATASE S/P/B 36 ALT 19 AST 19 BILIRUBIN TOTAL S/P/B 0.5 ALBUMIN S/P/B 4.4 3.5 - 5.0 TOTAL PROTEIN S/P/B 6.7 GLOBULIN 2.3 05/15/2021 us Default History Genericprovider LABORATORY Final Result documented in this encounter Visit Diagnoses Not on filedocumented in this encounter Care Teams Field Court Researcher Relationship Specialty Start Date End Date Sunday Venegas MD [address] [facility] [address] [place] [address] PCP - General FAMILY PRACTICE 01/30/22 10/14/23 Mitch Pemberton MD [address] [place] [address] PCP - General EMERGENCY MEDICINE 10/15/23 documented as of this encounter
--- OUTSIDE RECORDS SUMMARY | 2024-03-27 07:12 | XMS_ITS | Clinical Summary ---
Author Organization [facility] [address] [place] [address] Professional Wilber Address [address] [place] [address] Care Team Providers Care Scalp Treatment Operator Name Role Phone Mitch Pemberton MD Primary Care Provider [phone] Allergies Active Allergy Reactions Criticality Noted Date [...] (06/14/2022): Added automatically from request for surgery [id number] Immunizations Name Administration Dates Next Due Moderna SARS-CoV-2 Monovalen t Vaccination (12+ YRS) 02/02/2021,05/15/2020,04/17/2020 Surgical History Surgery Date Site/Laterality Comments AUGMENTATION MAMMOPLASTY 03/03/1985 - 03/02/1986 breast implants HYSTERECTOMY 03/03/1975 - 03/02/1976 Hysterectomy TONSILLECTOMY 03/03/1954 - 03/02/1955 Tonsillectomy OTHER SURGICAL HISTORY 03/03/2003 - 03/02/2004 surgery left thumb removed bone CATARACT EXTRACTION Cataract extraction VAGINAL PROLAPSE REPAIR 07/31/2022 APPENDECTOMY 195 WRIST SURGERY 03/03/2016 - 03/02/2017 Left Medical History Medical History Date Comments Disorder of thyroid Thyroid dise ase Hypertension Hypertension Hyperlipidemia Hyperlipidemia Arthritis Arthritis Motion sickness PONV (postoperative nausea and vomiting) Consider pre-medication Hypothyroidism Family History Medical History Relation Name Comments Heart disease Brother Nima Ramos Other Other 1 Family history of Cancer, brain; Diabetes Other 2 Family history of Diabetes mellitus; Other Other 3 No family histo ry of Thyroid disease; Anesthesia problems Neg Hx Relation Name Status Comments Brother Nima Ramos Other 1 Other 2 Other 3 Social History Tobacco Use Types Packs/Day Years [...] on file Legal Sex Female 7:32 PM 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 Gender Identity Female 07/08/2019 7:35 AM CDT Sexual Orientation Straight 09/27/2021 6: 07 PM CDT Obstetrics History Para Term AB IAB SAB Ectopic Multiple Livin g Live Births 4 3 3 1 1 3 3 Date Outcome GA Total Labor Labor/2nd/3rd Weight Sex Type Anes PTL Sobeida A1 A5 Name Clin 1967 SAB Demise 1968 Term M Vag-S pont Living 1969 Term M Vag-S pont Living 1973 Term M Vag-S pont Living Last Filed Vital Signs Vital Sign Reading [...] 11/25/2023 9:38 AM CDT Plan of Treatment Health Maintenance Due Date Last Done Comments Colon Cancer Screening-Colonoscopy 1951 Hepatitis C Screening 1950 DTaP/Tdap/Td Vaccine (1 - Tdap) 1962 Hepatitis B Screening 1969 Zoster Vaccine (1 of 2) 2001 Pneumococcal vaccine 65+ (1 of 1 - PCV) 01/08/2016 Well Visit 65+ 01/08/2016 Breast Cancer Screening-Mammogram 09/26/2016 09/27/2015, 10/27/2013, 10/11/2013 Osteoporosis Screening-Bone Density Scan 07/24/2019 07/23/2017 Covid-19 Vaccine (2023-2 5 season) 2023 02/02/2021, 02/01/2021, 05/15/2020, Additional history exists Depression Screening 08/18/2024 08/19/2023, 08/23/2021, 07/13/2020, Additional history exists Fall Risk Assessment 08/18/2024 08/19/2023, 08/02/19 Influenza Vaccine Completed 11/07/2023, , 07/24/2015 Medical Devices Implanted Type Area Laborer/Grade Check Device Identifier Shelf Expiration Date Model / Serial / Lot [employer] Upsylon 35.4cm Elongation Profile Lightweight Large Pore Low [id number] - [id number] Implanted:Qty: 1 on 07/31/2022 by Glenn Smith MD at [facility] M[employer] Tricia 05/31/2025 [id number] / / Procedures Procedure Name Priority Date/Time [...] Laterality Modality Body N/A Radiographic Kelsey ging Historical Provider MD JULES DXA PROCEDURES Final Result * Screening Mammogram (09/27/2015 7:31 AM CDT) Anatomical Region Laterality Modality Breast N/A Mammography 09/27/2015 7:31 AM CDT Narrative 09/27/2015 11:43 AM CDT Acc#: ??[id number] GINA [id number] - Screening Mamm W Implants [...] TECHNOLOGIST: ?? EMETERIO BEGUM, TECHNOLOGIST MEDICAL IMAGING GASOLINE PUMP MECHANIC: ??KG2 TRANSCRIBE DATE/TIME: ??Sep 27 2015 11:19A RADIOLOGIST: ??AVA NEWMAN M.D. ??READ ON: ??Sep 27 2015 10:26A ORDERING DR: SUNDAY MARES M.D. THIS DOCUMENT HAS BEEN ELECTRONICALLY SIGNED BY: ??AVA NEWMAN M.D. ??ON: ??Sep 27 2015 11:43A Attending: ??VISHNU, ??SUNDAY Requesting: ??VISHNU, ??SUNDAY Requesting Fax: ??[phone] Attending Fax: ??[phone] Attending ID: ??[id number] Requesting ID: ??[id number] Report To 1 ID: ?? Report To 1 Name: ??, ?? Report To 1 FAX: ??-- Report To 2 ID: ?? Report To 2 Name: ??, ?? Report To 2 FAX: ??-- NextGen Order #: ?? Procedure Note Provider, MD Josie - 07/07/2016 Acc#: [id number] GINA 0024 - Screening Mamm W Implants [...] ASSESSMENT CATEGORY 2 -- BENIGN TECHNOLOGIST: EMETERIO BEGUM TECHNOLOGIST MEDICAL IMAGING GASOLINE PUMP MECHANIC: KGDonato TRANSCRIBE DATE/TIME: Sep 27 2015 11:19A RADIOLOGIST: AVA NEWMAN M.D. READ ON: Sep 27 2015 10:26A ORDERING DR: SUNDAY MARES M.D. THIS DOCUMENT HAS BEEN ELECTRONICALLY SIGNED BY: AVA NEWMAN M.D. ON: Sep 27 2015 11:43A Attending: SUNDAY MARES Requesting: SUNDAY MARES Requesting Attending Attending ID: [id number] Requesting ID: [id number] Report To 1 ID: Report To 1 Name: , Report To 1 FAX: -- Report To 2 ID: Report To 2 Name: , Report To 2 FAX: -- NextGen Order #: Historical Provider MD JULES MAMMO PROCEDURES Cathleen l Result from Last 3 Months or Most Recently Relevant to Health Maintenance Insurance MEDIC[place] [employer] [place] [address] MEDICARE [employer] MEDICARE [facility] Advance Directives For more information, please contact: [phone] * Full Code (Latest Code Status on File) Date Activated Date Inactivated Comments 07/31/2022 3:49 PM 08/01/2022 4:41 PM Care Teams Scalp Treatment Operator Relationship Specialty Start Date End Date Mitch Pemberton MD [facility] [address] [address] PCP - General Family Medicine 11/26/23
--- OUTSIDE RECORDS SUMMARY | 2024-03-27 07:12 | XMS_ITS | Encounter Summary ---
Author Organization [facility] Address [address] [place] [address]. [place] [address] [place] [address] Care Team Providers Care Shift Superintendent Caustic Cresylate Name Role Phone Sunday Venegas MD Primary Care Provider [phone] Mitch Pemberton MD Primary Care Provider [phone] Encounter Details Date Type Department Care Team (Late Contact Info) Description 04/09/2022 CloSys Message Enc [facility] [address] [address] [facility] Provider Echocardiogram Social History Tobacco Use Types Packs/Day Years Used Date Smoking Tobacco: Never Passive Smoke Exposure: Never Smokeless Tobacco: Never Alcohol Use Standard Drinks/Week Comments Not Currently 0 (1 standard drink = 0.6 oz pur e alcohol) Comments No Sex and Gender Information Value Date Recorded Sex Assigned at Female 04/15/2023 3:16 PM MECHANICAL ENGINEER Legal Sex Female 5:43 PM CDT Gender Identity Female 04/15/2023 3:16 PM MECHANICAL ENGINEER Sexual Orientation Straight 04/15/2023 3: 16 PM MECHANICAL ENGINEER COVID-19 Exposure Response Date Recorded In the last 10 days, have yo u been in contact with someone who was confirmed or suspected to have Coronavirus/COVID-19? No / Unsure 04/08/2022 6:37 AM MECHANICAL ENGINEER documented as of this encounter Plan of Treatment Upcoming Encounters Date Type Department Care Team (Late Contact Info) Description 04/21/2024 10:45 AM MECHANICAL ENGINEER Office Visit [facility] [address] [address] Ton Sandoval MD Three [facility]. [facility] [address] [place] [address] documented as of this encounter Visit Diagnoses Not on filedocumented in this encounter Care Teams Shift Superintendent Caustic Cresylate Relationship Specialty Start Date End Date Sunday Venegas MD [address] [place] [address] PCP - General FAMILY PRACTICE 01/30/22 10/14/23 Mitch Pemberton MD [address] [place] [address] PCP - General EMERGENCY MEDICINE 10/15/23 documented as of this encounter
--- OUTSIDE RECORDS SUMMARY | 2024-03-27 07:13 | XMS_ITS | Encounter Summary ---
Author Organization [facility] Address [address] [place] [address]. [place] [address] [place] [address] Care Team Providers Care Catalog Librarian Name Role Phone Sunday Venegas MD Primary Care Provider [phone] Mitch Pemberton MD Primary Care Provider [phone] Encounter Details Date Type Department Care Team (Late st Contact Info) Description 11/21/2022 Campus Job Message Enc [facility] THREE [facility], [address] [id number] Ton Sandoval MD [facility]. [address] [address] New provider for medication refills Social History Tobacco Use Types Packs/Day Years Used Date Smoking Tobacco: Never Passive Smoke Exposure: Never Smokeless Tobacco: Never Alcohol Use Standard Drinks/Week Comments Not Currently 0 (1 standard drink = 0.6 oz pur e alcohol) Comments No Sex and Gender Information Value Date Recorded Sex Assigned at Female 04/15/2023 3:16 PM POLISHER ALUMINUM Legal Sex Female 5:43 PM CDT Gender Identity Female 04/15/2023 3:16 PM POLISHER ALUMINUM Sexual Orientation Straight 04/15/2023 3: 16 PM POLISHER ALUMINUM documented as of this encounter Progress Notes * Karen Woodward RN - 11/21/2022 9:03 AM CDT Please assist with patient request. documented in this encounter Plan of Treatment Upcoming Encounters Date Type Department Care Team (Late st Contact Info) Description 04/21/2024 10:45 AM POLISHER ALUMINUM Office Visit [facility], [facility] [address] [place] [address] Ton Sandoval MD Three [facility]. [facility] [address] [place] [address] documented as of this encounter Visit Diagnoses Not on filedocumented in this encounter Care Teams Catalog Librarian Relationship Specialty Start Date End Date Sunday Venegas MD [address] [place] [address] PCP - General FAMILY PRACTICE 01/30/22 10/14/23 Mitch Pemberton MD [address] [place] [address] PCP - General EMERGENCY MEDICINE 10/15/23 documented as of this encounter
--- OUTSIDE RECORDS SUMMARY | 2024-03-27 07:13 | XMS_ITS | Clinical Summary ---
Author Organization [facility] Address [address] [place] [address]. [place] [address] [place] [address] Care Team Providers Care Mineralogy Teacher Name Role Phone Mitch Pemberton MD Primary Care Provider [phone] Allergies Active Allergy Reactions Criticality Noted Date Comments Codeine Dizziness,Headache,N ausea and Vomiting,Photosensitivity 03/08/2022 Hydrocodone Unknown 03/08/2022 Penicillins Itching,Rash Low 03/08/2022 Medications vitamin D2, ergocalciferol, (DRISDOL) 00763 UNITS capsule TAKE 1 CAPSULE BY MOUTH 1 TIME A WEEK 02/13/2022 Active levothyroxine (SYNTHROID) 50 MCG tablet Take 1 tablet (50 mcg total) by mouth before breakfast. 01/04/2022 Active liothyronine (CYTOMEL) 5 MCG Tab daily. 01/04/2022 Active meloxicam (MOBIC) 7.5 MG tablet Take 1 tablet (7.5 mg total) by mouth 2 (two) times daily. 01/08/2022 Active estradiol (ESTRACE) 0.1 MG/GM vaginal cream once a week. 08/30/2022 Active aspirin EC (ECOTRIN) 81 MG tablet Take 1 tablet (81 mg total) by mouth daily. Active multi vitamin/minerals (PRESERVISION AREDS) Tab Take 1 tablet by mouth 2 (two) times a day. Active atorvastatin (LIPITOR) 20 MG tablet Take 1 tablet (20 mg total) by mouth nightly at bedtime. 90 tablet 1 10/15/2023 Active nitroglycerin (NITROSTAT) 0.[address] 1 tablet (0.4 mg total) under the tongue every 5 (five) minutes as needed for Chest Pain. Maximum of 3 doses, if a third dose is needed call 911. 25 tablet 3 10/15/2023 10/15/19 25 Active isosorbide mononitrate ER (IMDUR) 30 MG 24 hr tablet Take 1 tablet (30 mg total) by mouth 2 (two) times daily. 180 tablet 1 12/23/2023 Active metoprolol succinate ER (TOPROL-XL) 50 MG 24 hr tablet Take 1 tablet (50 mg total) by mouth daily. 90 tablet 1 12/23/2023 Active amLODIPine (NORVASC) 2.5 MG tablet Take 1 tablet (2.5 mg total) by mouth 2 (two) times daily. 180 tablet 01/13/2024 Active Active Problems Problem Noted Date Diagnosed Date Essential (primary) hypertension 03/08/2022 Chest pain 03/08/2022 CAD (coronary artery disease) 03/08/2022 Hypothyroidism, unspecified 03/08/2022 Immunizations Name Administration Dates Next Due Influenza Adult (Generic) 10/17/2021 MODERNA COVID-19 (12+) MRNA, LNP-S, PF, 100 MCG/ 0.5 ML DOSE 02/02/2021,02/01/2021,05/15/2020, 021 Family History Medical History Relation Comments Diabetes Brother Kidney Disease Father Brain cancer Mother Cancer Mother Brain (terminal) Relation Status Comments Brother Father Mother Social History Tobacco Use Types Packs/Day Years Used Date Smoking Tobacco: Never Passive Smoke Exposure: Never Smokeless Tobacco: Never Tobacco Cessation:Counseling Given: Not Answered Alcohol Use Standard Drinks/Week Comments Not Currently 0 (1 standard drink = 0.6 oz pur e alcohol) Comments No Sex and Gender Information Value Date Recorded Sex Assigned at Female 04/15/2023 3:16 PM PLATE SHOP HELPER Legal Sex Female 5:43 PM CDT Gender Identity Female 04/15/2023 3:16 PM PLATE SHOP HELPER Sexual Orientation Straight 04/15/2023 3: 16 PM PLATE SHOP HELPER Last Filed Vital Signs Vital Sign Reading Time Taken Comments Blood Pressure 120/76 10/15/2023 11:05 AM CDT Pulse 78 10/15/2023 11:05 AM CDT Temperature - - Respiratory Rate - - Oxygen Saturation 97% 10/09/2022 11:01 AM CDT Inhaled Oxygen Concentration - - Weight 75.3 kg (166 lb) 10/15/2023 11:05 AM CDT Height 162.6 cm (5' 4 ) 10/15/2023 11:05 AM CDT Body Mass Index 28.49 10/15/2023 11:05 AM CDT Plan of Treatment Upcoming Encounters Date Type Department Care Team (Late st Contact Info) Description 04/21/2024 10:45 AM PLATE SHOP HELPER Office Visit [facility], [address] [address] Ton Sandoval MD Three [facility]. [address] [address] Health Maintenance Due Date Last Done Comments Colorectal Cancer Screening Colonoscopy (10 Years) 1951 Pneumococcal Vaccine: 65+ Years (1 of 2 - PCV) 1957 Hepatitis C 1969 DTaP, Tdap and Td Vaccines (1 - Tdap) 1970 Mammogram Screening 1991 Zoster Vaccines (1 of 2) 2001 RSV Immunization or 60+ Years (1 - Risk 60-74 years 1-dose series) 2011 Annual Medicare Wellness Visit 01/08/2016 COVID-19 Vaccine ( season) 2023 02/02/2021, 02/01/2021, 05/15/2020, Additional history exists Influenza Adult (#1) 2023 10/17/2021 Dexa Scan (General) Completed 07/23/2017 Meningococcal B Vaccine Aged Out No l onger eligible based on patient's age to complete this topic Meningococcal Vaccine Aged Out No kamar allison eligible based on patient's age to complete this topic RSV Immunizations Under 20 Months Aged Out No longer eligible based on patient's age to complete this topic Insurance MEDICARE [facility] [place] [address] Care Teams Mineralogy Teacher Relationship Specialty Start Date End Date Mitch Pemberton MD [address] [place] [address] PCP - General EMERGENCY MEDICINE 10/15/23
--- OUTSIDE RECORDS SUMMARY | 2024-03-27 07:13 | XMS_ITS | Encounter Summary ---
Author Organization [facility] Address [address] [place] [address]. [place] [address] [place] [address] Care Team Providers Care Validation Engineer Name Role Phone Sunday Venegas MD Primary Care Provider [phone] Mitch Pemberton MD Primary Care Provider [phone] Encounter Details Date Type Department Care Team (Late st Contact Info) Description 07/14/2023 SpecialtyCare Message Enc [facility], [address] [id number] Ton Sandoval MD [facility]. [address] [address] Lab work performed July 12, 2023 Social History Tobacco Use Types Packs/Day Years Used Date Smoking Tobacco: Never Passive Smoke Exposure: Never Smokeless Tobacco: Never Alcohol Use Standard Drinks/Week Comments Not Currently 0 (1 standard drink = 0.6 oz pur e alcohol) Comments No Sex and Gender Information Value Date Recorded Sex Assigned at Female 04/15/2023 3:16 PM SUPERVISOR HOT DIP PLATING Legal Sex Female 5:43 PM CDT Gender Identity Female 04/15/2023 3:16 PM SUPERVISOR HOT DIP PLATING Sexual Orientation Straight 04/15/2023 3: 16 PM SUPERVISOR HOT DIP PLATING documented as of this encounter Progress Notes * Wen Richardson, MAGED - 07/14/2023 2:01 PM CDT See attached labs - can we get them scanned into her chart? documented in this encounter Plan of Treatment Upcoming Encounters Date Type Department Care Team (Late st Contact Info) Description 04/21/2024 10:45 AM SUPERVISOR HOT DIP PLATING Office [facility], [facility] [address] [place] [address] Ton Sandoval MD Three [facility]. [facility] [address] [place] [address] documented as of this encounter Visit Diagnoses Not on filedocumented in this encounter Care Teams Validation Engineer Relationship Specialty Start Date End Date Sunday Venegas MD [address] [facility] [address] [place] [address] PCP - General FAMILY PRACTICE 01/30/22 10/14/23 Mitch Pemberton MD [address] [place] [address] PCP - General EMERGENCY MEDICINE 10/15/23 documented as of this encounter
[2024-03-27 07:56] LABS: Hematocrit 43.8 % (35.0-42.0); Hemoglobin 14.6 g/dL (11.7-13.8); Mean Corpuscular HGB Conc 33.3 g/dL (32-36); Mean Corpuscular Hemoglobin 31.6 pg (27.0-31.0); Mean Corpuscular Volume 94.8 fL (78.0-102.0); Platelet Count Result 328 K/mm3 (150-420); Red Blood Count 4.62 M/mm3 (4.20-5.40); White Blood Count 5.2 K/mm3 (4.8-10.8)
[2024-03-27 08:38] LABS: Alanine Aminotransferase 27 U/L (14-59); Albumin Level 4.1 g/dL (3.4-5.0); Alkaline Phosphatase 80 U/L (46-116); Anion Gap 8 mmol/L (4-12); Aspartate Amino Transferase 17 U/L (15-37); Bilirubin,Total 0.8 mg/dL (0.00-1.00); Blood Urea Nitrogen 10 mg/dL (7-18); Calcium 9.4 mg/dL (8.5-10.1); Carbon Dioxide 26 mmol/L (21-32); Chloride 105 mmol/L (98-108); Estimated Glomerular Filt Rate > 60; Glucose 107 mg/dL (70-99); Osmolality Calculated 287 mOsm/kg (285-295); Potassium 4.4 mmol/L (3.5-5.1); Sodium 139 mmol/L (136-145); Total Protein 6.9 g/dL (6.4-8.2)
== END 2024-03-27 07:09 | disposition home or self-care (01) ==
PROVIDERS: PCP Nurse Practitioner Family; Visit Provider Nurse Practitioner Family
DX: Z79.899 Other long term (current) drug therapy (principal)
CPT/HCPCS: 36415; 80053; 85027

== ENCOUNTER 2024-05-12 12:26 | Outpatient (CLI) | payer MEDICARE, OTHER, SELFPAY ==
--- NOTE | 2024-05-12 13:45 | NEURO_ITS ---
Impression: # Complains of right hand discomfort. ? # Normal Nerve Conduction Study. ? # No Carpal Tunnel Syndrome or ulnar neuropathy. #Normal needle examination. ? # Clinical correlation recommended. Nerve Conduction Studies Anti Sensory Summary Table ?Stim Site NR Peak (ms) P-T Amp (?V) Site1 Site2 Delta-P (ms) Dist (cm) Amor (m/s) Right Median Anti Sensory (2-3nd Digit) Wrist ? 2.8 38.2 Wrist 2-3nd Digit 2.8 14.0 50 Wrist ? 2.9 54.7 Wrist 2-3nd Digit 2.8 14.0 50 Right Radial Anti Sensory (Base 1st Digit) Wrist ? 2.3 30.3 Wrist Base 1st Digit 2.3 0.0 Right Ulnar Anti Sensory (5th Digit) Wrist ? 2.5 62.4 Wrist 5th Digit 2.5 14.0 56 Motor Summary Table ?Stim Site NR Onset (ms) O-P Amp (mV) Site1 Site2 Delta-0 (ms) Dist (cm) Amor (m/s) Right Median Motor (Abd Poll Brev) Wrist ? 3.2 12.1 Elbow Wrist 4.7 28.0 60 Elbow ? 7.9 11.2 Right Ulnar Motor (Abd Dig Minimi) Wrist ? 2.8 5.3 A Elbow Wrist 5.1 30.0 59 A Elbow ? 7.9 5.0 F Wave Studies ?NR F-Lat (ms) L-R F-Lat (ms) Right Median (Mrkrs) (Abd Poll Brev) ? 26.56 Right Ulnar (Mrkrs) (Abd Dig Min) ? 27.95 EMG ?Side Muscle Nerve Root Ins Act Fibs Amp Dur Recrt Comment Right 1stDorInt Ulnar C8-T1 Nml Nml Nml Nml Nml Right Ext Indicis Radial (Post Int) C7-8 Nml Nml Nml Nml Nml Right Ext Digitorum Radial (Post Int) C7-8 Nml Nml Nml Nml Nml Right BrachioRad Radial C5-6 Nml Nml Nml Nml Nml Right PronatorTeres Median C6-7 Nml Nml Nml Nml Nml Right Abd Poll Brev Median C8-T1 Nml Nml Nml Nml Nml Right ABD Dig Min Ulnar C8-T1 Nml Nml Nml Nml Nml Right FlexPolLong Median (Ant Int) C7-8 Nml Nml Nml Nml Nml Right Abd Poll Long Radial (Post Int) C7-8 Nml Nml Nml Nml Nml ? MTDD
--- OUTSIDE RECORDS SUMMARY | 2024-05-12 13:46 | XMS_ITS | Clinical Summary ---
Author Organization [facility] [address] [place] [address] Professional Widener Address [address] [place] [address] Care Team Providers Care Nurse School Name Role Phone Mitch Pemberton MD Primary Care Provider [phone] Allergies Active Allergy Reactions Criticality Noted Date [...] (06/14/2022): Added automatically from request for surgery [id number] Immunizations Immunization Administration Dates Next Due Moderna SARS-CoV-2 Monovalen [...] Relation Name Comments Heart disease Brother Nima Raoms Other Other 1 Family history of Cancer, [...] on file Legal Sex Female 7:32 PM UNIVERSITY 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 Gender Identity Female 07/08/2019 7:35 AM CDT [...] 76 08/19/2023 9:29 AM CDT Temperature 36.3 C (97.3 F) 08/01/2022 7:25 AM CDT Respiratory Rate 18 08/19/2023 9:29 AM CDT [...] - Tdap) 1962 Hepatitis B Screening 1969 Pneumococcal vaccine 65+ (1 of 1 - PCV) 2001 Zoster Vaccine (1 of 2) 2001 Well Visit 65+ 01/08/2016 Breast Cancer Screening-Mammogram 09/26/2016 09/27/2015, 10/27/2013, 10/11/2013 Osteoporosis Screening-Bone Density Scan 07/24/2019 07/23/2017 Covid-19 Vaccine (2023-2 5 season) 2023 02/02/2021, 02/01/2021, 05/15/2020, Additional history exists Depression Screening 08/18/2024 08/19/2023, 08/23/2021, 07/13/2020, Additional history exists Fall Risk Assessment 08/18/2024 08/19/2023, 08/02/19 Influenza Vaccine Completed 11/07/2023, , 07/24/2015 Medical Devices Implanted Type Area Floral Merchandiser Device Identifier Shelf Expiration Date Model / Serial / Lot [employer] Upsylon 35.4cm Elongation Profile Lightweight Large Pore Low [id number] - [id number] Implanted:Qty: 1 on 07/31/2022 by Glenn Smith MD at [facility] Mesh [employer] Tricia 05/31/2025 [id number] / / Procedures Procedure Name Priority Date/Time [...] CDT Narrative 09/27/2015 11:43 AM CDT Acc#: [id number] GINA [id number] - Screening Mamm W Implants [...] BENIGN TECHNOLOGIST: EMETERIO BEGUM, TECHNOLOGIST MEDICAL IMAGING TABLE SAW OPERATOR: KG2 TRANSCRIBE DATE/TIME: Sep 27 2015 11:19A RADIOLOGIST: AVA NEWMAN M.D. READ ON: Sep 27 2015 10:26A ORDERING DR: SUNDAY MARES M.D. THIS DOCUMENT HAS BEEN ELECTRONICALLY SIGNED BY: AVA NEWMAN M.D. ON: Sep 27 2015 11:43A Attending: SUNDAY MARES Requesting: SUNDAY MARES Requesting Attending Attending ID: [id number] Requesting ID: [id number] Report To 1 ID: Report To 1 Name: , Report To 1 FAX: -- Report To 2 ID: Report To 2 Name: , Report To 2 FAX: -- NextGen Order #: Procedure Note Provider, MD Josie - 07/07/2016 Acc#: [id number] GINA 0024 - Screening Mamm W Implants [...] BENIGN TECHNOLOGIST: EMETERIO BEGUM, TECHNOLOGIST MEDICAL IMAGING TABLE SAW OPERATOR: KG2 TRANSCRIBE DATE/TIME: Sep 27 2015 11:19A RADIOLOGIST: AVA NEWMAN M.D. READ ON: Sep 27 2015 10:26A ORDERING DR: SUNDAY MARES M.D. THIS DOCUMENT HAS BEEN ELECTRONICALLY SIGNED BY: AVA NEWMAN M.D. ON: Sep 27 2015 11:43A Attending: SUNDAY MARES Requesting: SUNDAY MARES Requesting Attending Attending ID: [id number] Requesting ID: [id number] Report To 1 ID: Report To 1 Name: , Report To 1 FAX: -- Report To 2 ID: Report To 2 Name: , Report To 2 FAX: -- NextGen Order #: Historical Provider MD JULES MAMMO PROCEDURES Cathleen l Result from Last 3 Months or Most Recently Relevant to Health Maintenance Insurance MEDICARE [facility] [place] [address] MEDICARE [facility] [place] [address] Advance Directives For more information, please contact: [phone] * Full Code (Latest Code Status on File) Date Activated Date Inactivated Comments 07/31/2022 3:49 PM 08/01/2022 4:41 PM Care Teams Nurse School Relationship Specialty Start Date End Date Mitch Pemberton MD [employer] [facility] [address] [address] PCP - General Family Medicine 11/26/23
--- OUTSIDE RECORDS SUMMARY | 2024-05-12 13:46 | XMS_ITS | Clinical Summary ---
Author Organization [facility] Address [facility] [place] [address] Care Team Providers Care Orthopedic Shoes Salesperson Name Role Phone Mitch Pemberton MD Primary Care Provider [phone] Allergies Active Allergy Reactions Criticality Noted Date Comments Codeine Dizziness,Headache,N ausea and Vomiting,Photosensitivity 03/08/2022 Hydrocodone Unknown 03/08/2022 Penicillins Itching,Rash Low 03/08/2022 Medications vitamin D2, ergocalciferol, (DRISDOL) 11324 UNITS capsule TAKE 1 CAPSULE BY MOUTH 1 TIME A WEEK 2 Active levothyroxine (SYNTHROID) 50 MCG tablet Take 1 tablet (50 mcg total) by mouth before breakfast. 2 Active liothyronine (CYTOMEL) 5 MCG Tab daily. 2 Active meloxicam (MOBIC) 7.5 MG tablet Take 1 tablet (7.5 mg total) by mouth 2 (two) times daily. 2 Active estradiol (ESTRACE) 0.1 MG/GM vaginal cream once a week. 3 Active aspirin EC (ECOTRIN) 81 MG tablet Take 1 tablet (81 mg total) by mouth daily. Active multi vitamin/mineral s (PRESERVISION AREDS) Tab Take 1 tablet by mouth 2 (two) times a day. Active atorvastatin (LIPITOR) 20 MG tablet Take 1 tablet (20 mg total) by mouth nightly at bedtime. 90 tablet 1 4 Active nitroglycerin (NITROSTAT) 0.[address] 1 tablet (0.4 mg total) under the tongue every 5 (five) minutes as needed for Chest Pain. Maximum of 3 doses, if a third dose is needed call 911. 25 tablet 3 4 10/15/19 25 Active isosorbide mononitrate ER (IMDUR) 30 MG 24 hr tablet Take 1 tablet (30 mg total) by mouth 2 (two) times daily. 180 tablet 1 4 Active metoprolol succinate ER (TOPROL-XL) 50 MG 24 hr tablet Take 1 tablet (50 mg total) by mouth daily. 90 tablet 1 4 Active amLODIPine (NORVASC) 2.5 MG tablet Take 1 tablet (2.5 mg total) by mouth 2 (two) times daily. 180 tablet 1 5 Active metoprolol tartrate (LOPRESSOR) 100 MG tablet TAKE 1 TABLET BY MOUTH 1 HOUR PRIOR TO PROCEDURE 1 tablet 5 Active amLODIPine (NORVASC) 2.5 MG tablet Take 1 tablet (2.5 mg total) by mouth 2 (two) times daily. 180 tablet 4 04/21/19 25 Discontinu ed(Reorder ) Active Problems Problem Noted Date Diagnosed Date Essential (primary) hypertension 03/08/2022 Chest pain 03/08/2022 CAD (coronary artery disease) 03/08/2022 Hypothyroidism, unspecified 03/08/2022 Encounters Date Type Department Care Team Description 04/21/2024 10:45 AM COPYING MACHINE MECHANIC Office Visit [address] [address] Ton Sandoval MD Coronary Artery Disease (Follow up); Lipids; Hypertension 04/21/2024 Travel from Last 3 Months Immunizations Name Administration Dates Next Due Influenza [...] Sex Assigned at Female 04/15/2023 3:16 PM COPYING MACHINE MECHANIC Legal Sex Female 5:43 PM CDT Gender Identity Female 04/15/2023 3:16 PM COPYING MACHINE MECHANIC Sexual Orientation Straight 04/15/2023 3: 16 PM COPYING MACHINE MECHANIC Last Filed Vital Signs Vital Sign Reading Time Taken Comments Blood Pressure 136/82 04/21/2024 10:29 AM COPYING MACHINE MECHANIC Pulse 87 04/21/2024 10:29 AM COPYING MACHINE MECHANIC Temperature - - Respiratory Rate - - Oxygen Saturation 96% 04/21/2024 10:29 AM COPYING MACHINE MECHANIC Inhaled Oxygen Concentration - - Weight 74.8 kg (165 lb) 04/21/2024 10:29 AM COPYING MACHINE MECHANIC Height 162.6 cm (5' 4 ) 04/21/2024 10:29 AM COPYING MACHINE MECHANIC Body Mass Index 28.32 04/21/2024 10:29 AM COPYING MACHINE MECHANIC Plan of Treatment Upcoming Encounters Date Type Department Care Team (Late st Contact Info) Description 06/08/2024 11:00 AM CDT Appointment [facility] [place] [address] Ton Sandoval MD Three [facility]. [address] [place] [address] 07/13/2024 2:30 PM CDT Office [facility] [address] [place] [address] Wen Richardson FNP 3 [facility] [address] [place], [place] [address] Health Maintenance Due Date Last Done Comments Colorectal Cancer Screening Colonoscopy (10 Years) 1950 Pneumococcal Vaccine: 65+ Years (1 of 2 - PCV) 1957 Depression Screening PHQ-9 1963 Hepatitis C 1969 DTaP, Tdap and Td [...] age to complete this topic Insurance MEDICARE [facility] Care Teams Orthopedic Shoes Salesperson Relationship Specialty Start Date End Date Mitch Pemberton MD [address] [place] [address] PCP - General EMERGENCY MEDICINE 10/15/23
--- OUTSIDE RECORDS SUMMARY | 2024-05-12 13:46 | XMS_ITS | Encounter Summary ---
Author Organization [facility] Address [address] [place] [address] Care Team Providers Care Diagnostic Assistant Name Role Phone Sunday Venegas MD Primary Care Provider [phone] Mitch Pemberton MD Primary Care Provider [phone] Encounter Details Date Type Department Care Team (Late st Contact Info) Description 07/14/2023 Wercker Message Enc [facility] THREE [facility], [address] [address] Ton Sandoval MD [facility]. [address] [id number] Lab work performed July 12, 2023 Social History Tobacco Use Types Packs/Day Years Used Date Smoking Tobacco: Never Passive Smoke Exposure: Never Smokeless Tobacco: Never Alcohol Use Standard Drinks/Week Comments Not Currently 0 (1 standard drink = 0.6 oz pur e alcohol) Comments No Sex and Gender Information Value Date Recorded Sex Assigned at Female 04/15/2023 3:16 PM FACILITIES MANAGER Legal Sex Female 5:43 PM CDT Gender Identity Female 04/15/2023 3:16 PM FACILITIES MANAGER Sexual Orientation Straight 04/15/2023 3: 16 PM FACILITIES MANAGER documented as of this encounter Progress Notes * MAGED Pickard - 07/14/2023 2:01 PM CDT See attached labs - can we get them scanned into her chart? documented in this encounter Plan of Treatment Upcoming Encounters Date Type Department Care Team (Late st Contact Info) Description 06/08/2024 11:00 AM CDT Appointment [facility] [address] [facility] [place] [address] Ton [facility]oval MD Three [facility] [address] [place] [address] 07/13/2024 2:30 PM CDT Office Visit [facility] [address] [place] [address] Wen Richardson FNP 3 [facility] [address] [place] [address] documented as of this encounter Visit Diagnoses Not on filedocumented in this encounter Care Teams Diagnostic Assistant Relationship Specialty Start Date End Date Sunday Venegas MD [address] [place] [address] PCP - General FAMILY PRACTICE 01/30/22 10/14/23 Mitch Pemberton MD [address] [place] [address] PCP - General EMERGENCY MEDICINE 10/15/23 documented as of this encounter
--- OUTSIDE RECORDS SUMMARY | 2024-05-12 13:46 | XMS_ITS | Encounter Summary ---
Author Organization [facility] Address [address] [place] [address] Care Team Providers Care Director Of Consumer Affairs Name Role Phone Sunday Venegas MD Primary Care Provider [phone] Mitch Pemberton MD Primary Care Provider [phone] Encounter Details Date Type Department Care Team (Late st Contact Info) Description 03/13/2022 Abstract [place] THREE [facility], [facility] [address] [place] [address] Sharon Wilson MA Social History Tobacco Use Types Packs/Day Years Used Date Smoking Tobacco: Never Passive Smoke Exposure: Never Smokeless Tobacco: Never Alcohol Use Standard Drinks/Week Comments Not Currently 0 (1 standard drink = 0.6 oz pur e alcohol) Comments No Sex and Gender Information Value Date Recorded Sex Assigned at Female 04/15/2023 3:16 PM INSTRUCTOR CREELER Legal Sex Female 5:43 PM CDT Gender Identity Female 04/15/2023 3:16 PM INSTRUCTOR CREELER Sexual Orientation Straight 04/15/2023 3: 16 PM INSTRUCTOR CREELER COVID-19 Exposure Response Date Recorded In the last 10 days, have yo u been in contact with someone who was confirmed or suspected to have Coronavirus/COVID-19? No / Unsure 03/08/2022 9:30 AM INSTRUCTOR CREELER documented as of this encounter Plan of Treatment Upcoming Encounters Date Type Department Care Team (Late st Contact Info) Description 06/08/2024 11:00 AM CDT [place]ointment [place] [address] Ton Sandoval MD Three [facility]. [address] [place], [place] [address] 07/13/2024 2:30 PM CDT Office Visit [facility] THREE [facility], [address] [place], [place] [address] Wen Richardson FNP 3 [facility] [address] [place] [address] documented as of this encounter Procedures Procedure [...] * CK (CPK) (07/12/2023) CPK 98 07/12/2023 Default History Genericprovider LABORATORY Final Result * [...] Result * VITAMIN D, 25 OH (01/28/2022) Pathologist [facility] VITAMIN D 25 HYDROXY S/P/B 83.1 01/28/2022 Result [facility] History Genericprovider LABORATORY Final Result * HEMOGLOBIN, GLYCOSYLATED (01/28/2022) Pathologist [facility] HGB A1C 6.0 % 01/28/2022 Result [facility] Default History Genericprovider LABORATORY Final Result * LIPID PANEL (01/28/2022) [facility] CHOLESTEROL 166 HDL 46 TRIGLYCERIDES 89 LDL (CALCULATED) 103 01/28/2022 Result [facility] Genericprovider LABORATORY Final Result * COMPREHENSIVE METABOLIC PANEL (01/28/2022) Pathologist [facility] SODIUM S/P/B 141 POTASSIUM S/P/B 4.8 CO2 23 CHLORIDE S/P/B 106 GLUCOSE 99 mg/dL CALCIUM S/P/B 9.8 BUN 15 CREATININE S/P/B 0.80 0.5 - 1.0 EGFR NON-AFR. AMER. 79 <=90 ALKALINE PHOSPHATASE S/P/B 40 ALT 20 AST 26 BILIRUBIN TOTAL S/P/B 0.3 ALBUMIN S/P/B 4.5 3.5 - 5.0 TOTAL PROTEIN S/P/B 7.0 GLOBULIN 2.5 01/28/2022 Result [facility] Default History Genericprovider LABORATORY Final Result * CBC (OUTSIDE LAB) (01/28/2022) [facility] WBC 4.7 HGB 13.9 HCT 41.8 PLT 465 01/28/2022 Result [facility] Genericprovider LAB-OUTSIDE/ABST RACTED Final Result * THYROID STIM HORMONE, TSH (11/26/2021) Pathologist [facility] TSH 3.14 11/26/2021 Default History Genericprovider LABORATORY Final Result * CBC (OUTSIDE LAB) (11/26/2021) [facility] WBC 5.2 HGB 13.8 HCT 41.6 PLT 434 11/26/2021 Default History Genericprovider LAB-OUTSIDE/ABST RACTED Final Result * COMPREHENSIVE METABOLIC PANEL (11/26/2021) [facility] SODIUM S/P/B 140 POTASSIUM S/P/B 4.5 CO2 [...] LABORATORY Final Result * LIPID PANEL (11/26/2021) Pathologist [facility] CHOLESTEROL 156 HDL 48 TRIGLYCERIDES 93 NON HDL CHOLESTEROL 108 LDL (CALCULATED) 89 11/26/2021 Default History Genericprovider LABORATORY Final Result * LIPID PANEL (05/15/2021) [facility] CHOLESTEROL 143 HDL 46 TRIGLYCERIDES 103 NON [...] on filedocumented in this encounter Care Teams Director Of Consumer Affairs Relationship Specialty Start Date End Date Sunday Venegas MD [address] [address] [address] [place] [address] PCP - General FAMILY PRACTICE 01/30/22 10/14/23 Mitch Pemberton MD [address] [place] [address] PCP - General EMERGENCY MEDICINE 10/15/23 documented as of this encounter
--- OUTSIDE RECORDS SUMMARY | 2024-05-12 13:46 | XMS_ITS | Referral Summary ---
Author Organization [facility] [address] [place] [address] [facility] Address [address] [place] [id number] Care Team Providers Care Marketing Ambassador Name Role Phone Mitch Pemberton MD Primary Care Provider [phone] Allergies Active Allergy Reactions Criticality Noted Date [...] (06/14/2022): Added automatically from request for surgery [id number] Immunizations Immunization Administration Dates Next Due Moderna [...] on file Legal Sex Female 7:32 PM SEED CLEANING MACHINE OPERATOR Gender Identity Female 07/08/2019 7:35 AM [...] on file Medical Devices Implanted Type Area Electric Range Servicer Device Identifier Shelf Expiration Date Model / Serial / Lot Jajah Upsylon 35.4cm Elongation Profile Lightweight Large Pore Low [id number] - [id number] Implanted:Qty: 1 on 07/31/2022 by Glenn Smith MD at [facility] Jajah 05/31/2025 [id number] / / Procedures Procedure Name Priority Date/Time [...] CDT Narrative 09/27/2015 11:43 AM CDT Acc#: [id number] GINA 0024 - Screening Mamm W Implants [...] BENIGN TECHNOLOGIST: EMETERIO BEGUM, TECHNOLOGIST MEDICAL IMAGING SIDING APPLICATOR: KG2 TRANSCRIBE DATE/TIME: Sep 27 2015 11:19A RADIOLOGIST: AVA NEWMAN M.D. READ ON: Sep 27 2015 10:26A ORDERING DR: SUNDAY MARES M.D. THIS DOCUMENT HAS BEEN ELECTRONICALLY SIGNED BY: AVA NEWMAN M.D. ON: Sep 27 2015 11:43A Attending: SUNDAY MARES Requesting: SUNDAY MARES Requesting Attending Attending ID: [id number] Requesting ID: [id number] Report To 1 ID: Report To 1 Name: , Report To 1 FAX: -- Report To 2 ID: Report To 2 Name: , Report To 2 FAX: -- NextGen Order #: Procedure Note Provider, MD Josie - 07/07/2016 Acc#: [id number] GINA 0024 - Screening Mamm W Implants [...] BENIGN TECHNOLOGIST: EMETERIO BEGUM TECHNOLOGIST MEDICAL IMAGING SIDING APPLICATOR: MILDRED TRANSCRIBE DATE/TIME: Sep 27 2015 11:19A RADIOLOGIST: AVA NEWMAN M.D. READ ON: Sep 27 2015 10:26A ORDERING DR: SUNDAY MARES M.D. THIS DOCUMENT HAS BEEN ELECTRONICALLY SIGNED BY: AVA NEWMAN M.D. ON: Sep 27 2015 11:43A Attending: SUNDAY MARES Requesting: SUNDAY MARES Requesting Attending Attending ID: [id number] Requesting ID: [id number] Report To 1 ID: Report To 1 Name: , Report To 1 FAX: -- Report To 2 ID: Report To 2 Name: , Report To 2 FAX: -- NextGen Order #: Historical Provider MD JULES MAMMO PROCEDURES Cathleen l Result from Last 3 Months or Most Recently Relevant to Health Maintenance Insurance [facility] [place] [address] [place] [id number] [facility] [place] [address] Advance Directives For more information, please contact: [phone] * Full Code (Latest Code Status on File) Date Activated Date Inactivated Comments 07/31/2022 3:49 PM 08/01/2022 4:41 PM Care Teams Marketing Ambassador Relationship Specialty Start Date End Date Mitch Pemberton MD [facility] [address] [address] PCP - General Family Medicine 11/26/23
--- OUTSIDE RECORDS SUMMARY | 2024-05-12 13:46 | XMS_ITS | Encounter Summary ---
Author Organization [facility] Address [address] [place] [address] Care Team Providers Care Licensed Customs Broker Name Role Phone Sunday Venegas MD Primary Care Provider [phone] Mitch Pemberton MD Primary Care Provider [phone] Encounter Details Date Type Department Care Team (Late Contact Info) Description 04/09/2022 EqualEyes Message Enc [place] [facility] THREE [facility], [address] [address] E[place], [facility] Provider Echocardiogram Social History Tobacco Use Types Packs/Day Years Used Date Smoking Tobacco: Never Passive Smoke Exposure: Never Smokeless Tobacco: Never Alcohol Use Standard Drinks/Week Comments Not Currently 0 (1 standard drink = 0.6 oz pur e alcohol) Comments No Sex and Gender Information Value Date Recorded Sex Assigned at Female 04/15/2023 3:16 PM UI UX WEB DEVELOPER Legal Sex Female 5:43 PM CDT Gender Identity Female 04/15/2023 3:16 PM UI UX WEB DEVELOPER Sexual Orientation Straight 04/15/2023 3: 16 PM UI UX WEB DEVELOPER COVID-19 Exposure Response Date Recorded In the last 10 days, have yo u been in contact with someone who was confirmed or suspected to have Coronavirus/COVID-19? No / Unsure 04/08/2022 6:37 AM UI UX WEB DEVELOPER documented as of this encounter Plan of Treatment Upcoming Encounters Date Type Department Care Team (Late Contact Info) Description 06/08/2024 11:00 AM CDT Appointment [facility] [place] [address] Ton Sandoval MD Three [facility]. [address] [place] [address] 07/13/2024 2:30 PM CDT Office Visit [facility] THREE [facility], [address] [place] [address] Wen Richardson FNP 3 [facility] [address] [place] [address] documented as of this encounter Visit Diagnoses Not on filedocumented in this encounter Care Teams Licensed Customs Broker Relationship Specialty Start Date End Date Sunday Venegas MD [address] [facility] [address] [place] [address] PCP - General FAMILY PRACTICE 01/30/22 10/14/23 Mitch Pemberton MD [address] [place] [address] PCP - General EMERGENCY MEDICINE 10/15/23 documented as of this encounter
--- OUTSIDE RECORDS SUMMARY | 2024-05-12 13:46 | XMS_ITS | Encounter Summary ---
Author Organization [facility] Address [address] [place] [address] Care Team Providers Care Bander And Cellophaner Machine Name Role Phone Sunday Venegas MD Primary Care Provider [phone] Mitch Pemberton MD Primary Care Provider [phone] Encounter Details Date Type Department Care Team (Late st Contact Info) Description 11/21/2022 Instructure Message Enc [place] [facility] THREE [facility], [address] [address] Ton Sandoval MD [facility]. [address] [id number] New provider for medication refills Social History Tobacco Use Types Packs/Day Years Used Date Smoking Tobacco: Never Passive Smoke Exposure: Never Smokeless Tobacco: Never Alcohol Use Standard Drinks/Week Comments Not Currently 0 (1 standard drink = 0.6 oz pur e alcohol) Comments No Sex and Gender Information Value Date Recorded Sex Assigned at Female 04/15/2023 3:16 PM DINING SERVICES DIRECTOR Legal Sex Female 5:43 PM CDT Gender Identity Female 04/15/2023 3:16 PM DINING SERVICES DIRECTOR Sexual Orientation Straight 04/15/2023 3: 16 PM DINING SERVICES DIRECTOR documented as of this encounter Progress Notes * Karen Woodward RN - 11/21/2022 9:03 AM CDT Please assist with patient request. documented in this encounter Plan of Treatment Upcoming Encounters Date Type Department Care Team (Late st Contact Info) Description 06/08/2024 11:00 AM CDT Appointment [facility] [address] [facility] [address] Ton Sandoval MD Three [facility]. [address] [place] [address] 07/13/2024 2:30 PM CDT Office Visit [facility] THREE [facility], [address] [place] [address] Wen Richardson FNP 3 [facility] [address] [place] [address] documented as of this encounter Visit Diagnoses Not on filedocumented in this encounter Care Teams Bander And Cellophaner Machine Relationship Specialty Start Date End Date Sunday Venegas MD [address] [place] [address] PCP - General FAMILY PRACTICE 01/30/22 10/14/23 Mitch Pemberton MD [address] [place] [address] PCP - General EMERGENCY MEDICINE 10/15/23 documented as of this encounter
== END 2024-05-12 12:27 | disposition home or self-care (01) ==
LOC: ANHNEURO 12:28
PROVIDERS: PCP Nurse Practitioner Family; Visit Provider Emergency Medicine
DX: G56.01 Carpal tunnel syndrome, right upper limb (principal)
CPT/HCPCS: 95886; 95909

== ENCOUNTER 2024-07-07 07:53 | Outpatient (CLI) | payer MEDICARE, OTHER, SELFPAY ==
--- OUTSIDE RECORDS SUMMARY | 2024-07-07 07:58 | XMS_ITS | Encounter Summary ---
Author Organization [facility] Address [address] [place] [address] Care Team Providers Care Sock Examiner Name Role Phone Sunday Venegas MD Primary Care Provider [phone] Mitch Pemberton MD Primary Care Provider [phone] Encounter Details Date Type Department Care Team (Late st Contact Info) Description 03/13/2022 Abstract [facility] [address] [address] Sharon Wilson MA Social History Tobacco Use Types Packs/Day Years Used Date Smoking Tobacco: Never Passive Smoke Exposure: Never Smokeless Tobacco: Never Alcohol Use Standard Drinks/Week Comments Not Currently 0 (1 standard drink = 0.6 oz pur e alcohol) Comments No Sex and Gender Information Value Date Recorded Sex Assigned at Female 04/15/2023 3:16 PM STENOCAPTIONER Legal Sex Female 5:43 PM CDT Gender Identity Female 04/15/2023 3:16 PM STENOCAPTIONER Sexual Orientation Straight 04/15/2023 3: 16 PM STENOCAPTIONER COVID-19 Exposure Response Date Recorded In the last 10 days, have yo u been in contact with someone who was confirmed or suspected to have Coronavirus/COVID-19? No / Unsure 03/08/2022 9:30 AM STENOCAPTIONER documented as of this encounter Plan of Treatment Upcoming Encounters Date Type Department Care Team (Late st Contact Info) Description 07/13/2024 2:30 PM CDT Office Visit [facility] [address] [address] Wen Richardson, REAL ESTATE INSPECTOR [address] [address] documented as of this encounter Procedures Procedure [...] - 5.0 TOTAL PROTEIN S/P/B 6.7 07/12/2023 [facility] History Genericprovider LABORATORY Edited Result - Final * LIPID PANEL (07/12/2023) CHOLESTEROL 148 HDL 46 TRIGLYCERIDES 146 LDL (CALCULATED) 73 07/12/2023 [facility] History Genericprovider LABORATORY Edited Result - Final [...] Final Result * HEMOGLOBIN, GLYCOSYLATED (01/28/2022) Pathologist [facility] HGB A1C 6.0 % 01/28/2022 Result [facility] History Genericprovider LABORATORY Final Result * LIPID PANEL (01/28/2022) [facility] CHOLESTEROL 166 HDL 46 TRIGLYCERIDES 89 LDL (CALCULATED) 103 01/28/2022 [facility] History Genericprovider LABORATORY Final Result * COMPREHENSIVE METABOLIC PANEL (01/28/2022) [facility] SODIUM S/P/B 141 POTASSIUM S/P/B 4.8 CO2 23 CHLORIDE S/P/B 106 GLUCOSE 99 mg/dL CALCIUM S/P/B 9.8 BUN 15 CREATININE S/P/B 0.80 0.5 - 1.0 EGFR NON-AFR. AMER. 79 <=90 ALKALINE PHOSPHATASE S/P/B 40 ALT 20 AST 26 BILIRUBIN TOTAL S/P/B 0.3 ALBUMIN S/P/B 4.5 3.5 - 5.0 TOTAL PROTEIN S/P/B 7.0 GLOBULIN 2.5 01/28/[address] [facility] Genericprovider LABORATORY Final Result * CBC (OUTSIDE LAB) (01/28/2022) [facility] WBC 4.7 HGB 13.9 HCT 41.8 PLT 465 01/28/2022 Result [facility] History Genericprovider LAB-OUTSIDE/ABST RACTED Final Result * THYROID STIM HORMONE, TSH (11/26/2021) [facility] TSH 3.14 11/26/2021 [facility] History Genericprovider LABORATORY Final Result * CBC (OUTSIDE LAB) (11/26/2021) WBC 5.2 HGB 13.8 HCT 41.6 PLT 434 11/26/2021 [facility] History Genericprovider LAB-OUTSIDE/ABST RACTED Final Result [...] Final Result * LIPID PANEL (11/26/2021) Pathologist [facility] CHOLESTEROL 156 HDL 48 TRIGLYCERIDES 93 NON HDL CHOLESTEROL 108 LDL (CALCULATED) 89 11/26/2021 [facility] History Genericprovider LABORATORY Final Result * LIPID PANEL (05/15/2021) Pathologist [facility] CHOLESTEROL 143 HDL 46 TRIGLYCERIDES 103 NON [...] on filedocumented in this encounter Care Teams Sock Examiner Relationship Specialty Start Date End Date Sunday Venegas MD [address] [facility] [address] [place] [address] PCP - General FAMILY PRACTICE 01/30/22 10/14/23 Mitch Pemberton MD [address] [place] [address] PCP - General EMERGENCY MEDICINE 10/15/23 documented as of this encounter
--- OUTSIDE RECORDS SUMMARY | 2024-07-07 07:58 | XMS_ITS | Clinical Summary ---
Author Organization [facility] [address] [place] [address] Professional [place] Address [address] [place] [id number] Care Team Providers Care Turner Off Name Role Phone Mitch Pemberton MD Primary Care Provider Allergies Active Allergy Reactions Criticality Noted Date [...] (06/14/2022): Added automatically from request for surgery [id number] Immunizations Immunization Administration Dates Next Due Moderna [...] on file Legal Sex Female 7:32 PM HYDROGEN POWER PLANT ENGINEER Gender Identity Female 07/08/2019 7:35 AM CDT [...] , 07/24/2015 Medical Devices Implanted Type Area Ore Charger Device Identifier Shelf Expiration Date Model / Serial / Lot Cegal Tricia Upsylon 35.4cm Elongation Profile Lightweight Large Pore Low [id number] - [id number] Implanted:Qty: 1 on 07/31/2022 by Glenn Smith MD at [facility] [employer] [facility] Scientific Tricia 05/31/2025 [id number] / / Procedures Procedure Name Priority Date/Time [...] CDT Narrative 09/27/2015 11:43 AM CDT Acc#: [id number] GINA 0024 - Screening Mamm W Implants [...] BENIGN TECHNOLOGIST: EMETERIO BEGUM, TECHNOLOGIST MEDICAL IMAGING GLASS ETCHER HELPER: KG2 TRANSCRIBE DATE/TIME: Sep 27 2015 11:19A RADIOLOGIST: AVA NEWMAN M.D. READ ON: Sep 27 2015 10:26A ORDERING DR: SUNDAY MARES M.D. THIS DOCUMENT HAS BEEN ELECTRONICALLY SIGNED BY: AVA NEWMAN M.D. ON: Sep 27 2015 11:43A Attending: SUNDAY MARES Requesting: SUNDAY MARES Requesting Attending Attending ID: [id number] Requesting ID: [id number] Report To 1 ID: Report To 1 Name: , Report To 1 FAX: -- Report To 2 ID: Report To 2 Name: , Report To 2 FAX: -- NextGen Order #: Procedure Note Provider, MD Josie - 07/07/2016 Acc#: [id number] GINA 0024 - Screening Mamm W Implants [...] BENIGN TECHNOLOGIST: EMETERIO BEGUM, TECHNOLOGIST MEDICAL IMAGING GLASS ETCHER HELPER: KG2 TRANSCRIBE DATE/TIME: Sep 27 2015 11:19A RADIOLOGIST: AVA NEWMAN M.D. READ ON: Sep 27 2015 10:26A ORDERING DR: SUNDAY MARES M.D. THIS DOCUMENT HAS BEEN ELECTRONICALLY SIGNED BY: AVA NEWMAN M.D. ON: Sep 27 2015 11:43A Attending: SUNDAY MARES Requesting: SUNDAY MARES Requesting Attending Attending ID: [id number] Requesting ID: [id number] Report To 1 ID: Report To 1 Name: , Report To 1 FAX: -- Report To 2 ID: Report To 2 Name: , Report To 2 FAX: -- NextGen Order #: Historical Provider MD JULES MAMMO PROCEDURES Cathleen l Result from Last 3 Months or Most Recently Relevant to Health Maintenance Insurance MEDICARE [facility] [place] [address] MEDICARE [facility] [place] [address] Advance Directives For more information, please contact: [phone] * Full Code (Latest Code Status on File) Date Activated Date Inactivated Comments 07/31/2022 3:49 PM 08/01/2022 4:41 PM Care Teams Turner Off Relationship Specialty Start Date End Date Mitch Pemberton MD [facility] [address] [address] PCP - General Family Medicine 11/26/23
--- OUTSIDE RECORDS SUMMARY | 2024-07-07 07:58 | XMS_ITS | Encounter Summary ---
Author Organization [facility] Address [address] [place] [address] Care Team Providers Care Vp Of Digital Marketing Name Role Phone Sunday Venegas MD Primary Care Provider Mitch Pemberton MD Primary Care Provider [phone] Encounter Details Date Type Department Care Team (Late Contact Info) Description 04/09/2022 Freight Connection Message Enc [facility] [address] [address] [place], [facility] Provider Echocardiogram Social History Tobacco Use Types Packs/Day Years Used Date Smoking Tobacco: Never Passive Smoke Exposure: Never Smokeless Tobacco: Never Alcohol Use Standard Drinks/Week Comments Not Currently 0 (1 standard drink = 0.6 oz pur e alcohol) Comments No Sex and Gender Information Value Date Recorded Sex Assigned at Female 04/15/2023 3:16 PM BLOCK STACKER Legal Sex Female 5:43 PM CDT Gender Identity Female 04/15/2023 3:16 PM BLOCK STACKER Sexual Orientation Straight 04/15/2023 3: 16 PM BLOCK STACKER COVID-19 Exposure Response Date Recorded In the last 10 days, have yo u been in contact with someone who was confirmed or suspected to have Coronavirus/COVID-19? No / Unsure 04/08/2022 6:37 AM BLOCK STACKER documented as of this encounter Plan of Treatment Upcoming Encounters Date Type Department Care Team (Late Contact Info) Description 07/13/2024 2:30 PM CDT Office Visit [facility] [address] [address] Wen Richardson, LOADING UNIT TOOL SETTER 3 [facility] [address] [place] [address] documented as of this encounter Visit Diagnoses Not on filedocumented in this encounter Care Teams Vp Of Digital Marketing Relationship Specialty Start Date End Date Sunday Venegas MD [address] [place] [address] PCP - General FAMILY PRACTICE 01/30/22 10/14/23 Mitch Pemberton MD [address] [place] [address] PCP - General EMERGENCY MEDICINE 10/15/23 documented as of this encounter
--- OUTSIDE RECORDS SUMMARY | 2024-07-07 07:58 | XMS_ITS | Encounter Summary ---
Author Organization [facility] Address [address] [place] [address] Care Team Providers Care Electric Shipyard Operator Name Role Phone Sunday Venegas MD Primary Care Provider [phone] Mitch Pemberton MD Primary Care Provider [phone] Encounter Details Date Type Department Care Team (Late st Contact Info) Description 07/14/2023 [place]GO Message Enc [facility], [address] [address] Ton Sandoval MD [facility]. [address] [id number] Lab work performed July 12, 2023 Social History Tobacco Use Types Packs/Day Years Used Date Smoking Tobacco: Never Passive Smoke Exposure: Never Smokeless Tobacco: Never Alcohol Use Standard Drinks/Week Comments Not Currently 0 (1 standard drink = 0.6 oz pur e alcohol) Comments No Sex and Gender Information Value Date Recorded Sex Assigned at Female 04/15/2023 3:16 PM MEDICAL LABORATORY TECHNOLOGIST Legal Sex Female 5:43 PM CDT Gender Identity Female 04/15/2023 3:16 PM MEDICAL LABORATORY TECHNOLOGIST Sexual Orientation Straight 04/15/2023 3: 16 PM MEDICAL LABORATORY TECHNOLOGIST documented as of this encounter Progress Notes * MAGED Pickard - 07/14/2023 2:01 PM CDT See attached labs - can we get them scanned into her chart? documented in this encounter Plan of Treatment Upcoming Encounters Date Type Department Care Team (Late st Contact Info) Description 07/13/2024 2:30 PM CDT Office Visit [facility], [address] [place] [address] Wen Richardson FNP [facility] [address] [place] [address] documented as of this encounter Visit Diagnoses Not on filedocumented in this encounter Care Teams Electric Shipyard Operator Relationship Specialty Start Date End Date Sunday Venegas MD [address] [place] [address] PCP - General FAMILY PRACTICE 01/30/22 10/14/23 Mitch Pemberton MD [address] [place] [address] PCP - General EMERGENCY MEDICINE 10/15/23 documented as of this encounter
--- OUTSIDE RECORDS SUMMARY | 2024-07-07 07:58 | XMS_ITS | Encounter Summary ---
Author Organization [facility] Address [address] [place] [address] Care Team Providers Care Tuck Pointer Name Role Phone Mitch Pemberton MD Primary Care Provider [phone] Encounter Details Date Type Department Care Team (Late st Contact Info) Description 06/17/2024 Results Follow-Up [facility], [facility] [address] [place], [place] [id number] Jasmin Mckay RN [facility] CORONARY W SCORING Social History Tobacco Use Types Packs/Day Years Used Date Smoking Tobacco: Never Passive Smoke Exposure: Never Smokeless Tobacco: Never Alcohol Use Standard Drinks/Week Comments Not Currently 0 (1 standard drink = 0.6 oz pur e alcohol) Comments No Sex and Gender Information Value Date Recorded Sex Assigned at Female 04/15/2023 3:16 PM LANDSCAPE PAINTER Legal Sex Female 5:43 PM CDT Gender Identity Female 04/15/2023 3:16 PM LANDSCAPE PAINTER Sexual Orientation Straight 04/15/2023 3: 16 PM LANDSCAPE PAINTER documented as of this encounter Plan of Treatment Upcoming Encounters Date Type Department Care Team (Late st Contact Info) Description 07/13/2024 2:30 PM CDT Office Visit [facility], [address] [place], [place] [id number] Wen Richardson FNP 3 [facility] [address] [place], [place] [id number] documented as of this encounter Visit Diagnoses Not on filedocumented in this encounter Care Teams Tuck Pointer Relationship Specialty Start Date End Date Mitch Pemberton MD [address] [place] [address] PCP - General EMERGENCY MEDICINE 10/15/23 documented as of this encounter
--- OUTSIDE RECORDS SUMMARY | 2024-07-07 07:58 | XMS_ITS | Referral Summary ---
Author Organization [facility] [address] [place] [address] Professional [place] Address [address] [place] [address] Care Team Providers Care Labor Contract Analyst Name Role Phone Mitch Pemberton MD Primary Care Provider [phone] Allergies Active Allergy Reactions Criticality Noted Date [...] (06/14/2022): Added automatically from request for surgery [id number] Immunizations Immunization Administration Dates Next Due Moderna [...] on file Legal Sex Female 7:32 PM STATISTICAL TYPIST Gender Identity Female 07/08/2019 7:35 AM CDT [...] on file Medical Devices Implanted Type Area Bottom Liner Device Identifier Shelf Expiration Date Model / Serial / Lot etrigg Upsylon 35.4cm Elongation Profile Lightweight Large Pore Low [id number] - [id number] Implanted:Qty: 1 on 07/31/2022 by Glenn Smith MD at [facility] etrigg 05/31/2025 [id number] / / Procedures Procedure Name Priority Date/Time [...] CDT Narrative 09/27/2015 11:43 AM CDT Acc#: [id number] GINA 0024 - Screening Mamm W Implants [...] BENIGN TECHNOLOGIST: EMETERIO BEGUM, TECHNOLOGIST MEDICAL IMAGING MEAL GRINDER TENDER: KG2 TRANSCRIBE DATE/TIME: Sep 27 2015 11:19A RADIOLOGIST: AVA NEWMAN M.D. READ ON: Sep 27 2015 10:26A ORDERING DR: SUNDAY MARES M.D. THIS DOCUMENT HAS BEEN ELECTRONICALLY SIGNED BY: AVA NEWMAN M.D. ON: Sep 27 2015 11:43A Attending: SUNDAY MARES Requesting: SUNDAY MARES Requesting Attending Attending ID: [id number] Requesting ID: [id number] Report To 1 ID: Report To 1 Name: , Report To 1 FAX: -- Report To 2 ID: Report To 2 Name: , Report To 2 FAX: -- NextGen Order #: Procedure Note Provider, MD Josie - 07/07/2016 Acc#: [id number] GINA 0024 - Screening Mamm W Implants [...] BENIGN TECHNOLOGIST: EMETERIO BEGUM TECHNOLOGIST MEDICAL IMAGING MEAL GRINDER TENDER: MILDRED TRANSCRIBE DATE/TIME: Sep 27 2015 11:19A RADIOLOGIST: AVA NEWMAN M.D. READ ON: Sep 27 2015 10:26A ORDERING DR: SUNDAY MARES M.D. THIS DOCUMENT HAS BEEN ELECTRONICALLY SIGNED BY: AVA NEWMAN M.D. ON: Sep 27 2015 11:43A Attending: SUNDAY MARES Requesting: SUNDAY MARES Requesting Attending Attending ID: [id number] Requesting ID: [id number] Report To 1 ID: Report To 1 Name: , Report To 1 FAX: -- Report To 2 ID: Report To 2 Name: , Report To 2 FAX: -- NextGen Order #: Historical Provider MD JULES MAMMO PROCEDURES Cathleen l Result from Last 3 Months or Most Recently Relevant to Health Maintenance Insurance [facility] [place] [address] [place] [id number] [facility] [place] [address] Advance Directives For more information, please contact: [phone] * Full Code (Latest Code Status on File) Date Activated Date Inactivated Comments 07/31/2022 3:49 PM 08/01/2022 4:41 PM Care Teams Labor Contract Analyst Relationship Specialty Start Date End Date Mitch Pemberton MD [facility] [address] [address] PCP - General Family Medicine 11/26/23
--- OUTSIDE RECORDS SUMMARY | 2024-07-07 07:58 | XMS_ITS | Encounter Summary ---
Author Organization [facility] Address [address] [place] [address] Care Team Providers Care Subgrade Tester Name Role Phone Sunday Venegas MD Primary Care Provider [phone] Mitch Pemberton MD Primary Care Provider [phone] Encounter Details Date Type Department Care Team (Late st Contact Info) Description 11/21/2022 Groupspeak Message Enc [facility], [address] [address] Ton Sandoval MD [facility]. [address] [phone] New provider for medication refills Social History Tobacco Use Types Packs/Day Years Used Date Smoking Tobacco: Never Passive Smoke Exposure: Never Smokeless Tobacco: Never Alcohol Use Standard Drinks/Week Comments Not Currently 0 (1 standard drink = 0.6 oz pur e alcohol) Comments No Sex and Gender Information Value Date Recorded Sex Assigned at Female 04/15/2023 3:16 PM PAGE DESIGNER Legal Sex Female 5:43 PM CDT Gender Identity Female 04/15/2023 3:16 PM PAGE DESIGNER Sexual Orientation Straight 04/15/2023 3: 16 PM PAGE DESIGNER documented as of this encounter Progress Notes * Karen Woodward RN - 11/21/2022 9:03 AM CDT Please assist with patient request. documented in this encounter Plan of Treatment Upcoming Encounters Date Type Department Care Team (Late st Contact Info) Description 07/13/2024 2:30 PM CDT Office Visit [facility], [address] [place] [address] Wen Richardson, BUSH HOG OPERATOR 3 [facility] [address] [place] [address] documented as of this encounter Visit Diagnoses Not on filedocumented in this encounter Care Teams Subgrade Tester Relationship Specialty Start Date End Date Sunday Venegas MD [address] [facility] [address] [place] [address] PCP - General FAMILY PRACTICE 01/30/22 10/14/23 Mitch Pemberton MD [address] [place] [address] PCP - General EMERGENCY MEDICINE 10/15/23 documented as of this encounter
--- OUTSIDE RECORDS SUMMARY | 2024-07-07 07:58 | XMS_ITS | Clinical Summary ---
Author Organization [facility] Address [place] [address] Care Team Providers Care Master At Arms Name Role Phone Mitch Pemberton MD Primary Care Provider [phone] Allergies Active Allergy Reactions Criticality Noted Date Comments Codeine Dizziness,Headache,N ausea and Vomiting,Photosensitivity 03/08/2022 Hydrocodone Unknown 03/08/2022 Penicillins Itching,Rash Low 03/08/2022 Medications vitamin D2, ergocalciferol, (DRISDOL) 52161 UNITS capsule TAKE 1 CAPSULE BY MOUTH [...] mouth 2 (two) times a day. Active nitroglycerin (NITROSTAT) 0.[address] 1 tablet (0.4 mg total) under the tongue every 5 (five) minutes as needed for Chest Pain. Maximum of 3 doses, if a third dose is needed call 911. 25 tablet 3 4 10/15/19 25 Active amLODIPine (NORVASC) 2.5 MG tablet Take 1 tablet (2.5 mg total) by mouth 2 (two) times daily. 180 tablet 1 5 Active metoprolol tartrate (LOPRESSOR) 100 MG tablet TAKE 1 TABLET BY MOUTH 1 HOUR PRIOR TO PROCEDURE 1 tablet 5 Active isosorbide mononitrate ER (IMDUR) 30 MG 24 hr tablet Take 1 tablet (30 mg total) by mouth 2 (two) times daily. 180 tablet 1 5 Active metoprolol succinate ER (TOPROL-XL) 50 MG 24 hr tablet Take 1 tablet (50 mg total) by mouth daily. 90 tablet 1 5 Active atorvastatin (LIPITOR) 20 MG tablet Take 1 tablet (20 mg total) by mouth nightly at bedtime. 90 tablet 1 5 Active atorvastatin (LIPITOR) 20 MG tablet Take 1 tablet (20 mg total) by mouth nightly at bedtime. 90 tablet 1 4 07/03/19 25 Discontinu ed(Reorder ) isosorbide mononitrate ER (IMDUR) 30 MG 24 hr tablet Take 1 tablet (30 mg total) by mouth 2 (two) times daily. 180 tablet 1 4 07/03/19 25 Discontinu ed(Reorder ) metoprolol succinate ER (TOPROL-XL) 50 MG 24 hr tablet Take 1 tablet (50 mg total) by mouth daily. 90 tablet 1 4 07/03/19 25 Discontinu ed(Reorder ) Active Problems Problem Noted Date Diagnosed Date Essential (primary) hypertension 03/08/2022 Chest pain 03/08/2022 CAD (coronary artery disease) 03/08/2022 Hypothyroidism, unspecified 03/08/2022 Dyspnea on exertion 07/15/2018 Dyslipidemia 07/14/2018 Electrocardiogram abnormal 07/14/2018 Mixed hyperlipidemia 07/14/2018 Tricuspid valve regurgitation 07/14/2018 Encounters Date Type Department Care Team Description 06/17/2024 Results Follow-Up [facility], [address] [address] Rensing, Jasmin A, RN CTA CORONARY W SCORING 06/08/2024 10:36 AM CDT - 06/08/2024 11:59 PM CDT Hospital Encounter [place] [address] Michelle Sandoval MD Discharge Disposition: Home or Self Care (Routine Discharge) 06/08/2024 Travel 04/21/2024 10:45 AM COLORER Office Visit [facility], [address] [place] [address] Michelle Sandoval MD Coronary Artery Disease (Follow up); Lipids; Hypertension 04/21/2024 Travel from Last 3 Months Immunizations Immunization Administration Dates Next Due Influenza Adult (Generic) 10/17/2021 MODERNA COVID-19 (12+) MRNA, LNP-S, PF, 100 MCG/ 0.5 ML DOSE 02/02/2021,02/01/2021,05/15/2020,2020 Family History Medical History Relation Comments Diabetes [...] Sex Assigned at Female 04/15/2023 3:16 PM COLORER Legal Sex Female 5:43 PM CDT Gender Identity Female 04/15/2023 3:16 PM COLORER Sexual Orientation Straight 04/15/2023 3: 16 PM COLORER Last Filed Vital Signs Vital Sign Reading Time Taken Comments Blood Pressure 136/82 04/21/2024 10:29 AM COLORER Pulse 87 04/21/2024 10:29 AM COLORER Temperature - - Respiratory Rate - - Oxygen Saturation 96% 04/21/2024 10:29 AM COLORER Inhaled Oxygen Concentration - - Weight 74.8 kg (165 lb) 04/21/2024 10:29 AM COLORER Height 162.6 cm (5' 4 ) 04/21/2024 10:29 AM COLORER Body Mass Index 28.32 04/21/2024 10:29 AM COLORER Plan of Treatment Upcoming Encounters Date Type Department Care Team (Late st Contact Info) Description 07/13/2024 2:30 PM CDT Office Visit [facility], [address] [place] [address] Wen Richardson FNP 3 [facility] [address] [place], [place] [id number] Health Maintenance Due Date Last Done Comments Colorectal Cancer Screening Colonoscopy (10 Years) 1950 Depression Screening PHQ-9 1963 Hepatitis C 1969 DTaP, Tdap and Td Vaccines (1 - Tdap) 1970 Pneumococcal Vaccine: 50+ Years (1 of 2 - PCV) 1970 Mammogram Screening 1991 Zoster Vaccines (1 of 2) 2001 RSV Immunization or 60+ Years (1 - Risk 60-74 years 1-dose series) 2011 Annual Medicare Wellness Visit 01/08/2016 COVID-19 Vaccine ( season) 2023 02/02/2021, 02/01/2021, 05/15/2020, Additional history exists Dexa Scan (General) Completed 07/23/2017 Meningococcal B Vaccine Aged Out No l onger eligible based on patient's age to complete this topic Meningococcal Vaccine Aged Out No kamar allison eligible based on patient's age to complete this topic RSV Immunizations Under 20 Months Aged Out No longer eligible based on patient's age to complete this topic Procedures Procedure Name Priority Date/Time Associated Diagnosis Comments CTA CORONARY W SCORING Routine 06/08/2024 11:20 AM CDT Angina pectoris from Last 3 Months Results * CTA CORONARY W SCORING (06/08/2024 11:20 AM CDT) Anatomical Region Laterality Modality Chest Computed Tomogra phy, Radiographic Imaging 06/09/2024 10:0 8 AM CDT Addenda Addendum by Jarret Null MD on 06/17/2024 4:24 PM CDT Table formatting from the original result was not included. CT ANGIOGRAM (Cardiology Portion) Patient Name: Grace Emerson : 1950 Date of Study: 06-08-2024 Interpreting Tax Auditor: JARRET NULL M.D. Indication: Angina History: 74-year-old female with coronary artery disease, hypertension PRE PROCEDURE DATA Baseline heart rate is 66 beats per minute. Blood pressure is 143/85 mmHg. A 20 gauge Heplock was inserted in the right antecubital vein and flushed with a 0.9 NACL. PROCEDURE DATA Baseline heart rate is 57 beats per minute. Medication totals: Metoprolol 5 mg IVP Nitroglycerin sublingual tab times 2 Isovue contrast total is 80 ml followed by a flush of 0.9 normal saline 50 ml POST PROCEDURE DATA Post procedure heart rate is 78 beats per minute. Blood pressure is 131/69 mmHg. Patient tolerated procedure well. IV access discontinued and band aide dressing applied to site. TECHNIQUE Computed tomography was performed along the axial plane with 0.75 mm slice thickness utilizing IV administration of Isovue 370. FINDINGS The coronary calcium score is 78.9. The aortic valve calcium score is 15.3. The quality of the study is good. CARDIAC STRUCTURES Left Atrium: Normal in size. Left Atrial Appendage: Chicken wing morphology. There is no apparent left atrial appendage filling defect. Intra-atrial Septum: Normal. Left Ventricle: Cavity is normal in size. Concentric left ventricular hypertrophy: None. Left ventricular ejection fraction: 64%. Wall motion: Normal. No stigmata of prior infarction. No abnormal filling defect. Aorta: Aortic root measures 3.22cm. Ascending aorta measures 3.1cm. Pulmonary Arteries: Enlarged. There is no proximal filling defect. Pulmonary Vein: Normal pulmonary venous drainage. Four noted pulmonary veins. Two on the right and two on the left. Pericardium: Normal thickness without significant effusion or calcium present. Cardiac Valves: Thickening and calcifications in the aortic valve. Mild calcification of right coronary cusp. No thickening and calcifications in the mitral valve. Mild calcification of descending aorta. CORONARY ANATOMY Left Main: Large caliber vessel. Calcified plaque ostial left main. Left Anterior Descending Artery: 10% stenosis at the proximal vessel. It gives off 3 diagonal branches. First diagonal: Moderate caliber vessel. Patent with no evidence of plaque. Second diagonal: Large bifurcating caliber vessel. Patent with no evidence of plaque. Third diagonal: Moderate caliber vessel. Patent with no evidence of plaque. Circumflex Artery: Non-dominant. Patent with no evidence of plaque. It gives off 2 obtuse marginal branches. Distal circumflex continues in AV groove. First obtuse marginal: Large caliber vessel. Patent with no evidence of plaque. Second obtuse marginal: Large bifurcating caliber vessel. Patent with no evidence of plaque. Right Coronary Artery: Dominant. Patent with no evidence of plaque. It terminates as a posterior descending and right posterolateral branch. Posterior descending artery: Large caliber vessel. Patent with no evidence of plaque. Right posterolateral branch: Large caliber vessel. Patent with no evidence of plaque. ADDITIONAL NON-CARDIAC STRUCTURES AND LUNGS READ BY RADIOLOGY COLLEAGUES. IMPRESSION Stenosis: Mild stenosis of proximal left anterior descending. Plaque (Calcium Score): Overall, there is a mild amount of coronary plaque. Aortic Valve Calcium Score: 15.3. Ejection Fraction: 64%. Mild dilatation of main pulmonary artery. Modifiers: None. RECOMMENDATION: CAD RADS score is 1 P1- Consider non-atherosclerotic causes of symptoms and risk factor modification or preventive pharmacotherapy. Interpreting Tax Auditor: JARRET NULL M.D. 06/16/24 Narrative 06/09/2024 10:12 AM CDT [address] [address] EXAMINATION: CARDIAC COMPUTED TOMOGRAPHY ANGIOGRAM, ROUTINE CORONARY CTA. LUNG OVER READ. DATE: 06/08/2024 HISTORY: 74-year old female Angina pectoris, unspecified. COMPARISON: None. TECHNIQUE: Multidetector computerized tomography coronary angiogram was obtained using retrospective ECG gating after the administration of 80 mL of Isovue-370 intravenous contrast at 5 mL/sec with 50 mL saline push according to coronary CTA protocol. ECG tube modulation was used to reduce the radiation exposure. A dose lowering technique was used for this procedure, which may include, but is not limited to, dose reduction technique, automated exposure control, the use of iterative reconstruction, and ALARA (As Low As Reasonably Achievable) / Image Gently techniques. Medications: Administered by cardiology service. Vital signs: Recorded by cardiology service. Procedure Complications/Allergic reactions: None. Coronary CT angiogram quality: Determined by cardiology service. FINDINGS: CORONARY ARTERY ANGIOGRAM AND OTHER CARDIAC FINDINGS: Interpreted by shot lighter. EXTRACARDIAC FINDINGS: The visible lungs contain no suspicious lung nodule, mass, consolidation. The visualized thoracic aorta is atherosclerotic. Visualized pulmonary artery appears normal. Calcified granuloma. Calcified mediastinal and hilar lymph nodes. Accessory/replaced left hepatic artery. Punctate splenic calcifications. Spondylosis. IMPRESSION: 1. Cardiac findings interpreted by shot lighter. 2. No suspicious mass or consolidation in the visualized lungs. Ordered By: MICHELLE SANDOVAL Interpreted By: Doug Fong MD, 06/09/2024 10:08 AM Michelle Sandoval MD CT Edited Resu lt - Final from Last 3 Months Insurance MEDICARE [facility] [place] [address] Care Teams Master At Arms Relationship Specialty Start Date End Date Mitch Pemberton MD [address] [place] [address] PCP - General EMERGENCY MEDICINE 10/15/23
--- NOTE | 2024-07-07 08:29 | ECG_ITS ---
Test Date: 2024-07-07 08:49:15 Measurements Intervals [place] Rate: 58 P: 63 MI: 196 QRS: 6 QRSD: 80 T: 14 QT: 408 QTc: 403 Interpretive Statements SINUS BRADYCARDIA No previous ECG available for comparison Electronically Signed On 07-07-2024 14:03:49 CDT by Julio Sahni M.D.
== END 2024-07-07 07:54 | disposition home or self-care (01) ==
LOC: ANHCARD 07:55
PROVIDERS: PCP Nurse Practitioner Family; Visit Provider Anesthesiology
DX: Z01.818 Encounter for other preprocedural examination (principal); I11.9 Hypertensive heart disease without heart failure
CPT/HCPCS: 93005

== ENCOUNTER 2024-07-15 05:47 | Day surgery (SDC) | payer MEDICARE, OTHER, SELFPAY ==
[2024-07-02 13:01] VITALS: BMI 27.2
--- OUTSIDE RECORDS SUMMARY | 2024-07-15 06:00 | XMS_ITS | Clinical Summary ---
Author Organization [facility] [address] [place] [address] [facility] [place] Address [address] [place] [id number] Care Team Providers Care Ethnology Professor Name Role Phone Mitch Pemberton MD Primary Care Provider [phone] Allergies Active Allergy Reactions Criticality Noted Date [...] (06/14/2022): Added automatically from request for surgery [id number] Immunizations Immunization Administration Dates Next Due Moderna [...] on file Legal Sex Female 7:32 PM UNITIZER Gender Identity Female 07/08/2019 7:35 AM CDT [...] , 07/24/2015 Medical Devices Implanted Type Area Ski Base Trimmer Device Identifier Shelf Expiration Date Model / Serial / Lot [employer] Tricia Upsylon 35.4cm Elongation Profile Lightweight Large Pore Low [id number] - [id number] Implanted:Qty: 1 on 07/31/2022 by Glenn Smith MD at [facility] [employer] (formerly [employer]) [employer] Tricia 05/31/2025 [id number] / / Procedures Procedure Name Priority Date/Time [...] CDT Narrative 09/27/2015 11:43 AM CDT Acc#: [id number] GINA 0024 - Screening Mamm W Implants [...] ASSESSMENT CATEGORY 2 -- BENIGN TECHNOLOGIST: EMETERIO BGEUM, TECHNOLOGIST MEDICAL IMAGING ULTRASONIC SEAMING MACHINE OPERATOR: KG2 TRANSCRIBE DATE/TIME: Sep 27 2015 11:19A RADIOLOGIST: AVA NEWMAN M.D. READ ON: Sep 27 2015 10:26A ORDERING DR: SUNDAY MARES M.D. THIS DOCUMENT HAS BEEN ELECTRONICALLY SIGNED BY: AVA NEWMAN M.D. ON: Sep 27 2015 11:43A Attending: SUNDAY MARES Requesting: SUNDAY MARES Requesting Attending Attending ID: [id number] Requesting ID: [id number] Report To 1 ID: Report To 1 Name: , Report To 1 FAX: -- Report To 2 ID: Report To 2 Name: , Report To 2 FAX: -- NextGen Order #: Procedure Note Provider, MD Josie - 07/07/2016 Acc#: [id number] GINA 0024 - Screening Mamm W Implants [...] BENIGN TECHNOLOGIST: EMETERIO BEGUM, TECHNOLOGIST MEDICAL IMAGING ULTRASONIC SEAMING MACHINE OPERATOR: KG2 TRANSCRIBE DATE/TIME: Sep 27 2015 11:19A RADIOLOGIST: AVA NEMWAN M.D. READ ON: Sep 27 2015 10:26A ORDERING DR: SUNDAY MARES M.D. THIS DOCUMENT HAS BEEN ELECTRONICALLY SIGNED BY: AVA NEWMAN M.D. ON: Sep 27 2015 11:43A Attending: SUNDAY MARES Requesting: SUNDAY MARES Requesting Attending Attending ID: [id number] Requesting ID: [id number] Report To 1 ID: Report To 1 Name: , Report To 1 FAX: -- Report To 2 ID: Report To 2 Name: , Report To 2 FAX: -- NextGen Order #: Historical Provider MD JULES MAMMO PROCEDURES Cathleen l Result from Last 3 Months or Most Recently Relevant to Health Maintenance Insurance MEDICARE [facility] [place] [address] MEDICARE [facility] [place] [address] Advance Directives For more information, please contact: [phone] * Full Code (Latest Code Status on File) Date Activated Date Inactivated Comments 07/31/2022 3:49 PM 08/01/2022 4:41 PM Care Teams Ethnology Professor Relationship Specialty Start Date End Date Mitch Pemberton MD [facility] [address] [address] PCP - General Family Medicine 11/26/23
--- OUTSIDE RECORDS SUMMARY | 2024-07-15 06:00 | XMS_ITS | Referral Summary ---
Author Organization [facility] [address] [place] [address] [facility] [place] Address [address] [place] [id number] Care Team Providers Care Designer And Patternmaker Name Role Phone Mitch Pemberton MD Primary Care Provider [phone] Allergies Active Allergy Reactions Criticality Noted Date [...] (06/14/2022): Added automatically from request for surgery [id number] Immunizations Immunization Administration Dates Next Due Moderna [...] on file Legal Sex Female 7:32 PM PROJECT INTERNSHIP Gender Identity Female 07/08/2019 7:35 AM CDT [...] on file Medical Devices Implanted Type Area Powder Nipper Device Identifier Shelf Expiration Date Model / Serial / Lot Sosei Upsylon 35.4cm Elongation Profile Lightweight Large Pore Low [id number] - [id number] Implanted:Qty: 1 on 07/31/2022 by Glenn Smith MD at [facility] Sosei 05/31/2025 [id number] / / Procedures Procedure Name Priority Date/Time [...] CDT Narrative 09/27/2015 11:43 AM CDT Acc#: [id number] GINA 0024 - Screening Mamm W Implants [...] BENIGN TECHNOLOGIST: EMETERIO BEGUM, TECHNOLOGIST MEDICAL IMAGING VICE PRESIDENT SUPPLY CHAIN: KG2 TRANSCRIBE DATE/TIME: Sep 27 2015 11:19A RADIOLOGIST: AVA NEWMAN M.D. READ ON: Sep 27 2015 10:26A ORDERING DR: SUNDAY MARES M.D. THIS DOCUMENT HAS BEEN ELECTRONICALLY SIGNED BY: AVA NEWMAN M.D. ON: Sep 27 2015 11:43A Attending: SUNDAY MARES Requesting: SUNDAY MARES Requesting Attending Attending ID: [id number] Requesting ID: [id number] Report To 1 ID: Report To 1 Name: , Report To 1 FAX: -- Report To 2 ID: Report To 2 Name: , Report To 2 FAX: -- NextGen Order #: Procedure Note Provider, MD Josie - 07/07/2016 Acc#: [id number] GINA 0024 - Screening Mamm W Implants [...] BENIGN TECHNOLOGIST: EMETERIO BEGUM TECHNOLOGIST MEDICAL IMAGING VICE PRESIDENT SUPPLY CHAIN: MILDRED TRANSCRIBE DATE/TIME: Sep 27 2015 11:19A RADIOLOGIST: AVA NEWMAN M.D. READ ON: Sep 27 2015 10:26A ORDERING DR: SUNDAY MARES M.D. THIS DOCUMENT HAS BEEN ELECTRONICALLY SIGNED BY: AVA NEWMAN M.D. ON: Sep 27 2015 11:43A Attending: SUNDAY MARES Requesting: SUNDAY MARES Requesting Attending Attending ID: [id number] Requesting ID: [id number] Report To 1 ID: Report To 1 Name: , Report To 1 FAX: -- Report To 2 ID: Report To 2 Name: , Report To 2 FAX: -- NextGen Order #: Historical Provider MD JULES MAMMO PROCEDURES Cathleen l Result from Last 3 Months or Most Recently Relevant to Health Maintenance Insurance [facility] [place] [address] [place] [id number] [place] [address] [place] [address] [place] [address] Advance Directives For more information, please contact: [phone] * Full Code (Latest Code Status on File) Date Activated Date Inactivated Comments 07/31/2022 3:49 PM 08/01/2022 4:41 PM Care Teams Designer And Patternmaker Relationship Specialty Start Date End Date Mitch Pemberton MD [facility] [address] [address] PCP - General Family Medicine 11/26/23
--- OUTSIDE RECORDS SUMMARY | 2024-07-15 06:00 | XMS_ITS | Encounter Summary ---
Author Organization [facility] Address [address] [place] [address] Care Team Providers Care Neurosurgical Nurse Name Role Phone Sunday Venegas MD Primary Care Provider [phone] Mitch Pemberton MD Primary Care Provider [phone] Encounter Details Date Type Department Care Team (Late Contact Info) Description 04/09/2022 Feesheh Message Enc [facility] [address] [address] [facility] Provider Echocardiogram Social History Tobacco Use Types Packs/Day Years Used Date Smoking Tobacco: Never Passive Smoke Exposure: Never Smokeless Tobacco: Never Alcohol Use Standard Drinks/Week Comments Not Currently 0 (1 standard drink = 0.6 oz pur e alcohol) Comments No Sex and Gender Information Value Date Recorded Sex Assigned at Female 04/15/2023 3:16 PM ASTHMA EDUCATOR Legal Sex Female 5:43 PM CDT Gender Identity Female 04/15/2023 3:16 PM ASTHMA EDUCATOR Sexual Orientation Straight 04/15/2023 3: 16 PM ASTHMA EDUCATOR COVID-19 Exposure Response Date Recorded In the last 10 days, have yo u been in contact with someone who was confirmed or suspected to have Coronavirus/COVID-19? No / Unsure 04/08/2022 6:37 AM ASTHMA EDUCATOR documented as of this encounter Plan of Treatment Upcoming Encounters Date Type Department Care Team (Late Contact Info) Description 07/19/2025 8:45 AM CDT Office Visit [facility] [address] [address] Ton Sandoval MD [address] [facility]. [facility] [address] [place] [address] documented as of this encounter Visit Diagnoses Not on filedocumented in this encounter Care Teams Neurosurgical Nurse Relationship Specialty Start Date End Date Sunday Venegas MD [address] [place] [address] PCP - General FAMILY PRACTICE 01/30/22 10/14/23 Mitch Pemberton MD [address] [place], [place] [id number] PCP - General EMERGENCY MEDICINE 10/15/23 documented as of this encounter
--- OUTSIDE RECORDS SUMMARY | 2024-07-15 06:00 | XMS_ITS | Encounter Summary ---
Author Organization [facility] Address [address] [place] [address] Care Team Providers Care Gelatin Powder Mixer Name Role Phone Sunday Venegas MD Primary Care Provider [phone] Mitch Pemberton MD Primary Care Provider [phone] Encounter Details Date Type Department Care Team (Late st Contact Info) Description 03/13/2022 [facility] [address] [address] Sharon Wilson MA Social History Tobacco Use Types Packs/Day Years Used Date Smoking Tobacco: Never Passive Smoke Exposure: Never Smokeless Tobacco: Never Alcohol Use Standard Drinks/Week Comments Not Currently 0 (1 standard drink = 0.6 oz pur e alcohol) Comments No Sex and Gender Information Value Date Recorded Sex Assigned at Female 04/15/2023 3:16 PM RN ACLS Legal Sex Female 5:43 PM CDT Gender Identity Female 04/15/2023 3:16 PM RN ACLS Sexual Orientation Straight 04/15/2023 3: 16 PM RN ACLS COVID-19 Exposure Response Date Recorded In the last 10 days, have yo u been in contact with someone who was confirmed or suspected to have Coronavirus/COVID-19? No / Unsure 03/08/2022 9:30 AM RN ACLS documented as of this encounter Plan of Treatment Upcoming Encounters Date Type Department Care Team (Late st Contact Info) Description 07/19/2025 8:45 AM CDT Office Visit [facility] [address] [address] Ton Sandoval MD Three [facility]. [address] [address] documented as of this encounter Procedures Procedure [...] Final Result * HEMOGLOBIN, GLYCOSYLATED (01/28/2022) Pathologist [facility] HGB A1C 6.0 % 01/28/2022 [facility] History Genericprovider LABORATORY Final Result * LIPID PANEL (01/28/2022) [facility] CHOLESTEROL 166 HDL 46 TRIGLYCERIDES 89 LDL (CALCULATED) 103 01/28/2022 [facility] History Genericprovider LABORATORY Final Result * COMPREHENSIVE METABOLIC PANEL (01/28/2022) [facility] SODIUM S/P/B 141 POTASSIUM S/P/B 4.8 CO2 23 CHLORIDE S/P/B 106 GLUCOSE 99 mg/dL CALCIUM S/P/B 9.8 BUN 15 CREATININE S/P/B 0.80 0.5 - 1.0 EGFR NON-AFR. AMER. 79 <=90 ALKALINE PHOSPHATASE S/P/B 40 ALT 20 AST 26 BILIRUBIN TOTAL S/P/B 0.3 ALBUMIN S/P/B 4.5 3.5 - 5.0 TOTAL PROTEIN S/P/B 7.0 GLOBULIN 2.5 01/28/2022 Result [facility] Genericprovider LABORATORY Final Result * CBC (OUTSIDE LAB) (01/28/2022) [facility] WBC 4.7 HGB 13.9 HCT 41.8 PLT 465 01/28/2022 [facility] LAB-OUTSIDE/ABST RACTED Final Result * THYROID STIM HORMONE, TSH (11/26/2021) [facility] TSH 3.14 11/26/2021 [facility] History Genericprovider LABORATORY Final Result * CBC (OUTSIDE LAB) (11/26/2021) [facility] WBC 5.2 HGB 13.8 HCT 41.6 PLT 434 11/26/2021 [facility] History Genericprovider LAB-OUTSIDE/ABST RACTED Final [...] Final Result * LIPID PANEL (11/26/2021) Pathologist [facility] CHOLESTEROL 156 HDL 48 TRIGLYCERIDES 93 NON HDL CHOLESTEROL 108 LDL (CALCULATED) 89 11/26/2021 [facility] History Genericprovider LABORATORY Final Result * LIPID PANEL (05/15/2021) Pathologist [facility] CHOLESTEROL 143 HDL 46 TRIGLYCERIDES 103 NON HDL CHOLESTEROL 97 LDL (CALCULATED) 78 05/15/2021 Default History Genericprovider LABORATORY Final Result * (ABNORMAL) COMPREHENSIVE METABOLIC PANEL (05/15/2021) Pathologist [facility] SODIUM S/P/B 141 POTASSIUM S/P/B 4.5 CO2 [...] on filedocumented in this encounter Care Teams Gelatin Powder Mixer Relationship Specialty Start Date End Date Sunday Venegas MD [address] [facility] [address] [place] [address] PCP - General FAMILY PRACTICE 01/30/22 10/14/23 Mitch Pemberton MD [address] [place] [address] PCP - General EMERGENCY MEDICINE 10/15/23 documented as of this encounter
--- OUTSIDE RECORDS SUMMARY | 2024-07-15 06:00 | XMS_ITS | Encounter Summary ---
Author Organization [facility] Address [address] [place] [address] Care Team Providers Care Canary Breeder Name Role Phone Mitch Pemberton MD Primary Care Provider [phone] Encounter Details Date Type Department Care Team (Late st Contact Info) Description 06/17/2024 Results Follow-Up [facility], [address] [address] Jasmin Mckay RN CTA CORONARY W SCORING Social History Tobacco Use Types Packs/Day Years Used Date Smoking Tobacco: Never Passive Smoke Exposure: Never Smokeless Tobacco: Never Alcohol Use Standard Drinks/Week Comments Not Currently 0 (1 standard drink = 0.6 oz pur e alcohol) Comments No Sex and Gender Information Value Date Recorded Sex Assigned at Female 04/15/2023 3:16 PM SOLIDWORKS MECHANICAL DESIGNER Legal Sex Female 5:43 PM CDT Gender Identity Female 04/15/2023 3:16 PM SOLIDWORKS MECHANICAL DESIGNER Sexual Orientation Straight 04/15/2023 3: 16 PM SOLIDWORKS MECHANICAL DESIGNER documented as of this encounter Plan of Treatment Upcoming Encounters Date Type Department Care Team (Late st Contact Info) Description 07/19/2025 8:45 AM CDT Office Visit [facility], [address] [address] Ton Sandoval MD [facility]. [address] [phone] documented as of this encounter Visit Diagnoses Not on filedocumented in this encounter Care Teams Canary Breeder Relationship Specialty Start Date End Date Mitch Pemberton MD [address] [place] [address] PCP - General EMERGENCY MEDICINE 10/15/23 documented as of this encounter
--- OUTSIDE RECORDS SUMMARY | 2024-07-15 06:00 | XMS_ITS | Encounter Summary ---
Author Organization [facility] Address [address] [place] [address] Care Team Providers Care Family Living Educator Name Role Phone Sunday Venegas MD Primary Care Provider [phone] Mitch Pemberton MD Primary Care Provider [phone] Encounter Details Date Type Department Care Team (Late st Contact Info) Description 11/21/2022 [employer] Message Enc [facility], [address] [phone] Ton Sandoval MD [facility]. [address] [phone] New provider for medication refills Social History Tobacco Use Types Packs/Day Years Used Date Smoking Tobacco: Never Passive Smoke Exposure: Never Smokeless Tobacco: Never Alcohol Use Standard Drinks/Week Comments Not Currently 0 (1 standard drink = 0.6 oz pur e alcohol) Comments No Sex and Gender Information Value Date Recorded Sex Assigned at Female 04/15/2023 3:16 PM TUFT MACHINE OPERATOR Legal Sex Female 5:43 PM CDT Gender Identity Female 04/15/2023 3:16 PM TUFT MACHINE OPERATOR Sexual Orientation Straight 04/15/2023 3: 16 PM TUFT MACHINE OPERATOR documented as of this encounter Progress Notes * Karen Woodward RN - 11/21/2022 9:03 AM CDT Please assist with patient request. documented in this encounter Plan of Treatment Upcoming Encounters Date Type Department Care Team (Late st Contact Info) Description 07/19/2025 8:45 AM CDT Office Visit [facility], [facility] [address] [place] [address] Ton Sandoval MD Three [facility]. [facility] [address] [place] [address] documented as of this encounter Visit Diagnoses Not on filedocumented in this encounter Care Teams Family Living Educator Relationship Specialty Start Date End Date Sunday Venegas MD [address] [place] [address] PCP - General FAMILY PRACTICE 01/30/22 10/14/23 Mitch Pemberton MD [address] [place] [address] PCP - General EMERGENCY MEDICINE 10/15/23 documented as of this encounter
--- OUTSIDE RECORDS SUMMARY | 2024-07-15 06:00 | XMS_ITS | Clinical Summary ---
Author Organization [facility] Address Count includes the [facility] [place] [address] Care Team Providers Care Water Softener Service Supervisor Name Role Phone Mitch Pemberton MD Primary Care Provider [phone] Allergies Active Allergy Reactions Criticality Noted Date Comments Codeine Dizziness,Headache,N ausea and Vomiting,Photosensitivity 03/08/2022 Hydrocodone Unknown 03/08/2022 Penicillins Itching,Rash Low 03/08/2022 Medications vitamin D2, ergocalciferol, (DRISDOL) 38751 UNITS capsule TAKE 1 CAPSULE BY MOUTH 1 TIME A WEEK 02/14/20 22 Active levothyroxine (SYNTHROID) 50 MCG tablet Take 1 tablet (50 mcg total) by mouth before breakfast. 01/05/20 22 Active liothyronine (CYTOMEL) 5 MCG Tab daily. 01/05/20 22 Active meloxicam (MOBIC) 7.5 MG tablet Take 1 tablet (7.5 mg total) by mouth 2 (two) times daily. 01/09/20 22 Active aspirin EC (ECOTRIN) 81 MG tablet [...] is needed call 911. 25 tablet 3 10/15/19 24 025 Active amLODIPine (NORVASC) 2.5 MG tablet Take 1 tablet (2.5 mg total) by mouth 2 (two) times daily. 180 tablet 1 04/21/19 25 Active isosorbide mononitrate ER (IMDUR) 30 MG 24 hr tablet Take 1 tablet (30 mg total) by mouth 2 (two) times daily. 180 tablet 1 07/03/19 25 Active metoprolol succinate ER (TOPROL-XL) 50 MG 24 hr tablet Take 1 tablet (50 mg total) by mouth daily. 90 tablet 1 07/03/19 25 Active atorvastatin (LIPITOR) 20 MG tablet Take 1 tablet (20 mg total) by mouth nightly at bedtime. 90 tablet 1 07/03/19 25 Active estradiol (ESTRACE) 0.1 MG/GM vaginal cream once a week. 08/31/19 23 025 Discontinued atorvastatin (LIPITOR) 20 MG tablet Take 1 tablet (20 mg total) by mouth nightly at bedtime. 90 tablet 1 10/15/19 24 025 Discontinued(Re order) isosorbide mononitrate ER (IMDUR) 30 MG 24 hr tablet Take 1 tablet (30 mg total) by mouth 2 (two) times daily. 180 tablet 1 12/23/19 24 025 Discontinued(Re order) metoprolol succinate ER (TOPROL-XL) 50 MG 24 hr tablet Take 1 tablet (50 mg total) by mouth daily. 90 tablet 1 12/23/19 24 025 Discontinued(Re order) metoprolol tartrate (LOPRESSOR) 100 MG tablet TAKE 1 TABLET BY MOUTH 1 HOUR PRIOR TO PROCEDURE 1 tablet 04/21/19 25 025 Discontinued Active Problems Problem Noted Date Diagnosed Date Essential (primary) hypertension 03/08/2022 Chest pain 03/08/2022 CAD (coronary artery disease) 03/08/2022 Hypothyroidism, unspecified 03/08/2022 Dyspnea on exertion 07/15/2018 Dyslipidemia 07/14/2018 Electrocardiogram abnormal 07/14/2018 Mixed hyperlipidemia 07/14/2018 Tricuspid valve regurgitation 07/14/2018 Encounters Date Type Department Care Team Description 07/13/2024 2:30 PM CDT [facility], [address] [address] Wen Richardson FNP Follow Up (CCTA) 07/13/2024 Travel 07/08/2024 MyChart [facility], [facility] [address] [place] [address] Michelle Sandoval MD EKG 06/17/2024 Results [facility], [address] [address] Jasmin Mckay RN CTA CORONARY W SCORING 06/08/2024 10:36 AM CDT - 06/08/2024 11:59 PM CDT Hospital Encounter [facility] [address] [facility] [place] [address] Michelle Sandoval MD Discharge Disposition: Home or Self Care (Routine Discharge) 06/08/2024 Travel 04/21/2024 10:45 AM ACTIVATED SLUDGE ATTENDANT Office [facility], [address] [address] Michelle Sandoval MD Coronary Artery Disease (Follow up); Lipids; Hypertension 04/21/2024 Travel from Last 3 Months Immunizations Immunization Administration Dates Next Due Influenza Adult (Generic) 10/17/2021 MODERNA COVID-19 (12+) MRNA, LNP-S, PF, 100 MCG/ 0.5 ML DOSE 02/02/2021,02/01/2021,05/15/2020,2020 Family History Medical History Relation Comments Diabetes Brother Heart Disease Brother CHF Kidney Disease Father Brain cancer Mother Cancer Mother Brain tumor (ter maykel) Relation Status Comments Brother Father Mother Social History Tobacco Use Types Packs/Day Years Used Date Smoking Tobacco: Never Passive Smoke Exposure: Never Smokeless Tobacco: Never Tobacco Cessation:Counseling Given: Not Answered Alcohol Use Standard Drinks/Week Comments Not Currently 0 (1 standard drink = 0.6 oz pur e alcohol) Comments No Sex and Gender Information Value Date Recorded Sex Assigned at Female 04/15/2023 3:16 PM ACTIVATED SLUDGE ATTENDANT Legal Sex Female 5:43 PM CDT Gender Identity Female 04/15/2023 3:16 PM ACTIVATED SLUDGE ATTENDANT Sexual Orientation Straight 04/15/2023 3: 16 PM ACTIVATED SLUDGE ATTENDANT Last Filed Vital Signs Vital Sign Reading Time Taken Comments Blood Pressure 130/78 07/13/2024 2:22 PM CDT Pulse 84 07/13/2024 2:22 PM CDT Temperature - - Respiratory Rate - - Oxygen Saturation 95% 07/13/2024 2:22 PM CDT Inhaled Oxygen Concentration - - Weight 74.6 kg (164 lb 6.4 oz) 07/13/2024 2:22 P M CDT Height 162.6 cm (5' 4 ) 07/13/2024 2:22 PM CDT Body Mass Index 28.22 07/13/2024 2:22 PM CDT Plan of Treatment Upcoming Encounters Date Type Department Care Team (Late st Contact Info) Description 07/19/2025 8:45 AM CDT Office Visit [facility], [address] [phone] Michelle Sandoval MD [facility]. [address] [address] Health Maintenance Due Date Last Done Comments [...] 2023 02/02/2021, 02/01/2021, 05/15/2020, Additional history exists ASCVD LDL 07/11/2024 07/12/2023, 02/02, 01/28/2022, Additional history exists Dexa Scan (General) Completed [...] Routine 06/08/2024 11:20 AM CDT Angina pectoris LIPID PANEL Routine 07/12/2023 from Last 3 Months or Most Recently Relevant to Health Maintenance Results * CTA CORONARY W SCORING (06/08/2024 11:20 AM CDT) Anatomical Region Laterality Modality Chest Computed Tomogra phy, Radiographic Imaging 06/09/2024 10:0 8 AM CDT Addenda Addendum by Jarret Null MD on 06/17/2024 4:24 PM CDT Table formatting from the original result was not included. CT ANGIOGRAM (Cardiology Portion) Patient Name: Grace Emerson : 1950 Date of Study: 06-08-2024 Interpreting Chemistry Instructor: JARRET NULL M.D. Indication: Angina History: 74-year-old [...] risk factor modification or preventive pharmacotherapy. Interpreting Chemistry Instructor: JARRET NULL M.D. 06/16/24 Narrative 06/09/2024 10:[address] [facility] [address] [place], [place] [address] EXAMINATION: CARDIAC COMPUTED TOMOGRAPHY ANGIOGRAM, ROUTINE CORONARY [...] ANGIOGRAM AND OTHER CARDIAC FINDINGS: Interpreted by carpenters. EXTRACARDIAC FINDINGS: The visible lungs contain no suspicious lung nodule, mass, consolidation. The visualized thoracic aorta is atherosclerotic. Visualized pulmonary artery appears normal. Calcified granuloma. Calcified mediastinal and hilar lymph nodes. Accessory/replaced left hepatic artery. Punctate splenic calcifications. Spondylosis. IMPRESSION: 1. Cardiac findings interpreted by carpenters. 2. No suspicious mass or consolidation in the visualized lungs. Ordered By: MICHELLE SANDOVAL Interpreted By: Doug Fong MD, 06/09/2024 10:08 AM us Michelle Sandoval MD CT Edited Resu lt - Final * LIPID PANEL (07/12/2023) CHOLESTEROL 148 HDL 46 TRIGLYCERIDES 146 LDL (CALCULATED) 73 07/12/2023 us Default History Genericprovider LABORATORY Edited Result - Final from Last 3 Months or Most Recently Relevant to Health Maintenance Insurance MEDICARE [facility] [place] [address] Care Teams Water Softener Service Supervisor Relationship Specialty Start Date End Date Mitch Pemberton MD [address] [place] [address] PCP - General EMERGENCY MEDICINE 10/15/23
--- OUTSIDE RECORDS SUMMARY | 2024-07-15 06:00 | XMS_ITS | Encounter Summary ---
Author Organization [facility] Address [address] [place] [address] Care Team Providers Care Car Repairer Pullman Name Role Phone Mitch Pemberton MD Primary Care Provider [phone] Encounter Details Date Type Department Care Team (Late Contact Info) Description 07/08/2024 MyChart Message Enc [facility], [address] [phone] Ton Sandoval MD [facility]. [address] [phone] EKG Social History Tobacco Use Types Packs/Day Years Used Date Smoking Tobacco: Never Passive Smoke Exposure: Never Smokeless Tobacco: Never Alcohol Use Standard Drinks/Week Comments Not Currently 0 (1 standard drink = 0.6 oz pur e alcohol) Comments No Sex and Gender Information Value Date Recorded Sex Assigned at Female 04/15/2023 3:16 PM CORE CHECKER Legal Sex Female 5:43 PM CDT Gender Identity Female 04/15/2023 3:16 PM CORE CHECKER Sexual Orientation Straight 04/15/2023 3: 16 PM CORE CHECKER documented as of this encounter Plan of Treatment Upcoming Encounters Date Type Department Care Team (Late Contact Info) Description 07/19/2025 8:45 AM CDT Office Visit [facility], [address] [phone] Ton Sandoval MD [facility]. [address] [address] documented as of this encounter Visit Diagnoses Not on filedocumented in this encounter Care Teams Car Repairer Pullman Relationship Specialty Start Date End Date Mitch Pemberton MD [address] [place] [address] PCP - General EMERGENCY MEDICINE 10/15/23 documented as of this encounter
--- OUTSIDE RECORDS SUMMARY | 2024-07-15 06:00 | XMS_ITS | Encounter Summary ---
Author Organization [facility] Address [address] [place] [address] Care Team Providers Care Weather Stripper Name Role Phone Sunday Venegas MD Primary Care Provider [phone] Mitch Pemberton MD Primary Care Provider [phone] Encounter Details Date Type Department Care Team (Late st Contact Info) Description 07/14/2023 [employer] Message Enc [place] [facility], [address] [phone] Ton Sandoval MD [facility]. [address] [phone] Lab work performed July 12, 2023 Social History Tobacco Use Types Packs/Day Years Used Date Smoking Tobacco: Never Passive Smoke Exposure: Never Smokeless Tobacco: Never Alcohol Use Standard Drinks/Week Comments Not Currently 0 (1 standard drink = 0.6 oz pur e alcohol) Comments No Sex and Gender Information Value Date Recorded Sex Assigned at Female 04/15/2023 3:16 PM WELT STITCHER Legal Sex Female 5:43 PM CDT Gender Identity Female 04/15/2023 3:16 PM WELT STITCHER Sexual Orientation Straight 04/15/2023 3: 16 PM WELT STITCHER documented as of this encounter Progress Notes * MAGED Pickard - 07/14/2023 2:01 PM CDT See attached labs - can we get them scanned into her chart? documented in this encounter Plan of Treatment Upcoming Encounters Date Type Department Care Team (Late st Contact Info) Description 07/19/2025 8:45 AM CDT Office Visit [facility], [facility] [address] [place] [address] Ton Sandoval MD Three [facility]. [facility] [address] [place], [place] [phone] documented as of this encounter Visit Diagnoses Not on filedocumented in this encounter Care Teams Weather Stripper Relationship Specialty Start Date End Date Sunday Venegas MD [address] [facility] [address] [place] [address] PCP - General FAMILY PRACTICE 01/30/22 10/14/23 Mitch Pemberton MD [address] [place] [address] PCP - General EMERGENCY MEDICINE 10/15/23 documented as of this encounter
[2024-07-15 06:21] VITALS: BP 127/79; PULSE 64; RESP 16; TEMP 36.7; O2SAT 97
--- NOTE | 2024-07-15 06:49 | WPDHPUPDATE1 ---
History and Physical Update Update Date/Time: 07/15/24 06:49 Patient seen and examined in pre-operative holding area. No interval change in medical history or symptoms. Patient recalls previous discussion of benefits and alternatives to procedure. Continues to desire to proceed with right endoscopic possible open carpal tunnel release . Reviewed procedure, post-op expectations and risks including but not limited to bleeding, infection, injury to tendon/nerve/vessel, decreased hand function, stiffness, RSD, no change or worsening of symptoms. I discussed the possible use of assistants and their participation in the case. Patient stated understanding and signed the consent form wishing to proceed.
--- NOTE | 2024-07-15 06:50 | P.OP_ITS ---
Procedure Note - Detailed Date of Procedure 07/15/24 Pre-op Diagnosis Right Carpal Tunnel Syndrome Post-op Diagnosis Same Procedure Performed right ectr Surgeon Carlos Marks MD Hull Line Crew Member ho rain pa-c Anesthesia MAC Description of Procedure INFORMED CONSENT: The patient was seen and examined and marked in the pre-op area.? The patient signed the consent form. PROCEDURE IN DETAIL:The patient taken back to OR on the stretcher in supine position. Time out performed with anesthesia, surgeon and staff agreeing on patient's name site and surgery to be performed SCDs were placed on the lower extremities and inflated. A tourniquet was placed on {right} upper extremity and antibiotics given IV After anesthesia administered sedation I injected {5}cc 1%lido with epi and 0.5% marcaine plain at the operative site The?{right upper extremity}?was prepped and draped in sterile fashion the??{right upper extremity} was? exsanguinated with Esmarch bandage and tourniquet inflated to 250mmHg I made a transverse incision in the {right} volar distal wrist crease through skin and dermis with 15 blade scalpel.? Littler scissors spread down to antebrachial fascia. A small incision was made in antebrachial fascia allowing access to Carpal tunnel. I proceeded with sequential dilation staying in line with the ring finger and hugging the hook of the hamate.? I then used the synovial elevator to free any adhesions from the underside of the transverse carpal ligament. Next I was able to insert the Microaire endoscopic carpal tunnel device with direct visualization of the transverse fibers on the monitor and proceeded with complete segmental retrograde release of the ligament in its entirety.? I irrigated with normal saline and closed with 4-0 monocryl for dermis and subcuticular closure. A dressing of Dermabond, 4x4, mamta, and a volar splint was applied for patient safety, security, and comfort and secured with an doris bandage after the tourniquet was let down noting the hand was warm and well perfused. The patient was then awaken from anesthesia and transferred to the recovery room in stable condition.? Complications - none EBL- 0cc Disposition - home in stable condition Ho Rain PA-C was essential for positioning, retraction, closure and dressing placement [facility] Billing Surgery - Charge Forward: Surgery Billing ([id number] same for ho adding )
[2024-07-15] MEDS: LACTATED RINGERS 1,000 ML 30 ML IV CONT (07:00)
--- NOTE | 2024-07-15 07:11 | WPDANESEPPF ---
Anes - Initial Pre Proc Eval Procedure: Operation Date: 07/15/24 07:30 Proposed Procedures p Right Endoscopic Carpal Tunnel Release, Possible Open Carpal Tunnel Release - Carlos Marks MD Date/Time: 07/15/24 07:11 Surgeon: Carlos Marks MD Pre Op Diagnosis: Right Carpal Tunnel Syndrome Patient Data Age: 74 Gender: F Height: 1.63 m Weight: 74.25 kg Last Vital Signs Temp 36.7 C 07/15/24 06:21 Pulse 64 07/15/24 06:21 Resp 16 07/15/24 06:21 BP 127/79 07/15/24 06:21 Pulse Ox 97 07/15/24 06:21 O2 Del Method Room Air 07/15/24 06:21 Allergies Allergy/AdvReac Type Severity Reaction Status Date / Time penicillin G Allergy Mild Rash Verified 07/15/24 06:18 Penicillins Allergy Mild Rash Verified 07/15/24 06:18 codeine AdvReac Mild Nausea Verified 07/15/24 06:18 hydrocodone AdvReac Mild Nausea Verified 07/15/24 06:18 Home Medications ?Medication ?Instructions ?Recorded ?Confirmed ?Type amlodipine 2.5 mg tablet 2.5 mg PO BID 08/15/20 07/15/24 History cholecalciferol (vitamin D3) 1,250 1,250 mcg PO WEEKLY 08/15/20 07/15/24 History mcg (50,000 unit) capsule isosorbide dinitrate 30 mg tablet 30 mg PO BID 08/15/20 07/15/24 History levothyroxine 50 mcg tablet 50 mcg PO DAILY 08/15/20 07/15/24 History liothyronine 5 mcg tablet 5 mcg PO DAILY 08/15/20 07/15/24 History metoprolol succinate 50 mg 50 mg PO DAILY 08/15/20 07/15/24 History tablet,extended release 24 hr aspirin 81 mg tablet,delayed 81 mg PO DAILY 09/23/22 07/15/24 History release inulin 2 gram chewable tablet 2 g PO DAILY 09/23/22 07/15/24 History (Fiber Gummies) atorvastatin 20 mg tablet 20 mg PO DAILY 10/22/23 07/15/24 History meloxicam 7.5 mg tablet 7.5 mg PO BID #180 tabs 03/12/24 07/15/24 Rx Patient hx anesthesia problems: post op nausea/vomiting Family hx anesthesia problems: none Results Review: All pre-operative results and documents have been reviewed as part of the pre-operative evaluation. [facility] Past Medical History Medical History Screening for breast cancer Colon cancer screening Vaginal prolapse Hypothyroidism Hypertension with heart disease CAD (coronary artery disease) Surgical History Surgical History History of hysterectomy Family History Family History Sibling Hypertension Family history of diabetes mellitus in first degree relative Mother Family history of malignant neoplasm of brain Social History Social History Smoking status: Never smoker Second hand tobacco smoke exposure: No Alcohol intake: never Substance use: never Substance use type: does not use Lack of Transportation: No Lack of Food: Never True Current Housing: I Have Housing Concerned About Future Housing: No Difficulty Paying Gas/Electric Bills: No Difficulty Paying for Meds: No Currently Unemployed: No Education: Associate Degree Difficulty w/ Childcare or Family Care: No Living arrangements: alone Occupation/Education: retired Gender identity (if verbalized by the patient): Female Sexual Orientation (if Verbalized by the Patient): Straight or Heterosexual Spiritual care concerns: No Anes - Eval Final PreProcedure Day of Procedure 07/15/24 07:11 Patient weight: overweight Heart: regular rate and rhythm Lungs: clear to auscultation Airway: Mallampati scale class II Neurological: alert and oriented Last oral intake: >/= 8 hours ASA classification: III Emergent: no Anesthetic plan: proceed Anesthesia type and monitoring: general GIVS and standard monitoring Results Review: All pre-operative results and documents have been reviewed as part of the pre-operative evaluation. Informed Consent: The patient's anesthetic plan and its attendant risks and benefits were discussed with the patient/family/POA. Questions were solicited and answers provided to the satisfaction of the patient/family/POA.
[2024-07-15] MEDS: ceFAZolin SODIUM 2 GM/20 ML SW SYRINGE IV PUSH (07:26)
[2024-07-15] MEDS: LIDOCAINE 1% LOCAL INJ 20 ML VIAL INFILTRATE (07:31)
[2024-07-15] MEDS: BUPIVACAINE/EPINEPHRINE 0.5% 10 ML VIAL 2 ML INFILTRATE (07:31)
[2024-07-15 07:45] VITALS: BP 94/62; PULSE 75; RESP 15; O2SAT 98
--- NOTE | 2024-07-15 07:51 | WPDANESPN ---
Anes - Prog Note Post-Op Date/Time: 07/15/24 07:51 Cardiovascular status: normal Respiratory status: normal Airway patency: baseline Mental status: baseline Post-Op hydration status: normal Vital Signs: Last Vital Signs Temp 36.7 C 07/15/24 06:21 Pulse 75 07/15/24 07:45 Resp 15 07/15/24 07:45 BP 94/62 L 07/15/24 07:45 Pulse Ox 98 07/15/24 07:45 O2 Del Method Room Air 07/15/24 07:45 Pain Score (VAS): 0 Patient Feedback: Patient satisfied with anesthetic care.
[2024-07-15 07:55] VITALS: BP 113/70; PULSE 78; RESP 16; O2SAT 96
[2024-07-15 08:05] VITALS: BP 118/60; PULSE 60; RESP 16; O2SAT 97
== END 2024-07-15 08:22 | disposition home or self-care (01) ==
PROVIDERS: PCP Nurse Practitioner Family; Visit Provider Plastic Surgery
PROC: 01N54ZZ Release Median Nerve, Percutaneous Endoscopic Approach (ICD-10-PCS; CPT 29848; principal; 2024-07-15 07:30)
DX: G56.01 Carpal tunnel syndrome, right upper limb (principal)
CPT/HCPCS: 29848

== ENCOUNTER 2024-11-19 07:08 | Outpatient (CLI) | payer MEDICARE, OTHER, SELFPAY ==
--- NOTE | ~2024-11-19 | MM_ITS ---
EXAMINATION: screening [facility] BI w devin INDICATION: Asymptomatic, referred for screening mammogram COMPARISON: 11/18/2023 through 08/01/2017 TECHNIQUE: Digital Breast Tomosynthesis CC, MLO, and implant displaced CC and MLO views of Both breasts were obtained with computer-aided detection to assist in interpretation of the study. FINDINGS: The breasts are almost entirely fatty. Bilateral breast Retropectoral Silicone implants in place appears intact. No focal dominant mass, architectural distortion, or suspicious microcalcifications are identified. There are no features to suggest malignancy. IMPRESSION: 1. No evidence of malignancy in the breasts. 2. Both breasts Retropectoral Silicone implants appears intact. Recommend continued screening mammography BI-RADS 1, NEGATIVE Reviewed, dictated and finalized at location B.
== END 2024-11-19 07:09 | disposition home or self-care (01) ==
LOC: CHSIMG 07:09
PROVIDERS: PCP Nurse Practitioner Family; Visit Provider Nurse Practitioner Family
DX: Z12.31 Encounter for screening mammogram for malignant neoplasm of breast (principal)
CPT/HCPCS: 77063; 77067